=== PATIENT | male | born 1960 | race Caucasian/White ===

== ENCOUNTER 2016-08-15 22:57 | Emergency (ER) | payer MEDICAID, OTHER ==
[~2016-08-15] VITALS: Ht 177.8 cm; Wt 81.6 kg
[~2016-08-15 22:57] MED LIST: AMOX-842 PO; HYDR-4446 PO; METO-460 PO
[2016-08-15 23:09] VITALS: BP 138/89
--- NOTE | 2016-08-16 00:59 | NUR ---
PT TAKEN TO BED 3
--- NOTE | 2016-08-16 01:03 | NUR ---
56 Y/O M BIBA C/P ETOH AND ANXIETY, HE DRINK VODKA ALL DAY AND ANXIOUS. PT ALERT AND ORIENTED X 4, NO S/S OF DISTRESS ER MADE AWARE.
--- NOTE | 2016-08-16 01:07 | NUR ---
Dr. Guadarrama evaluating patient at bedside.
[2016-08-16 01:40] VITALS: BP 133/82
== END 2016-08-16 00:59 | disposition home or self-care (01) ==
LOC: MED 22:57
DX: F10.20 Alcohol dependence, uncomplicated (principal); I10 Essential (primary) hypertension; Z88.5 Allergy status to narcotic agent
CPT/HCPCS: 99283

== ENCOUNTER 2016-08-30 17:17 | Inpatient (IN) | payer OTHER ==
[~2016-08-30] VITALS: Ht 175.3 cm; Wt 81.6 kg
--- NOTE | 2016-08-30 17:17 | NUR ---
Patient was BIBA at this time.
--- NOTE | 2016-08-30 17:24 | NUR ---
Patient taken to bed 07 via gurney per EMS.
[2016-08-30 17:26] VITALS: BP 136/88
--- NOTE | 2016-08-30 17:42 | NUR ---
56/M josy from home for evaluation of ETOH intoxication. Pt states he called 911 from home and states "I want to quit drinking." Denies pain. Denies chest pain or SOB. Denies N/V/D. AOX4, slurred speech noted. VSS. Pt placed on cardiac technician, pulse oximetry, blood pressure monitoring. NSR. No distress noted. Pt is calm and cooperative at this time.
--- NOTE | 2016-08-30 17:44 | NUR ---
Patient being evaluated by physician at bedside.
[2016-08-30] MEDS ORDERED: NACL 0.9% 1,000 ML IV ONE ×2 (17:50→18:55)
--- NOTE | 2016-08-30 18:22 | NUR ---
URINAL PROVIDED AT BEDSIDE. SOCKS PROVIDED. LAB AT BEDSIDE FOR BLOOD DRAW.
--- NOTE | 2016-08-30 18:25 | NUR ---
LAB at bedside.
[2016-08-30 18:37] LABS: BASOPHILS # (AUTO) 0.4 K/uL (0.00-0.22); EOSINOPHILS # (AUTO) 0.2 K/uL (0-0.4); EOSINOPHILS % (AUTO) 1.7 % (0.0-4.0); HEMATOCRIT 38.2 % (36-52); HEMOGLOBIN 12.7 g/dL (12.0-18.0); LYMPHOCYTES # (AUTO) 1.9 K/uL (2.0-11.5); LYMPHOCYTES % (AUTO) 16.3 % (20.5-51.1); MEAN CORPUSCULAR HEMOGLOBIN 29 pg (27-31); MEAN CORPUSCULAR HGB CONC 33 g/dL (33-37); MEAN CORPUSCULAR VOLUME 89 fL (80-94); MONOCYTES # (AUTO) 0.2 K/uL (0.8-1.0); NEUTROPHILS # (AUTO) 9.2 K/uL (1.8-7.7); PLATELET COUNT (AUTO) 196 K/uL (140-450); RED BLOOD CELL COUNT(AUTO) 4.32 MIL/uL (4.20-6.10); RED CELL DISTRIBUTION WIDTH 14.4 % (11.6-13.7); WHITE BLOOD COUNT (AUTO) 11.9 K/uL (4.8-10.8)
--- NOTE | 2016-08-30 18:38 | NUR ---
Urinal provided. UA collected and sent to lab. Pt placed in position of comfort. Warm blanket provided. VSS.
[2016-08-30 18:47] LABS: ANION GAP 26.9 (8-16); CALCIUM 8.3 mg/dL (8.5-10.1); CARBON DIOXIDE 18.2 mmol/L (21-32); CHLORIDE 108 mmol/L (98-107); CREATININE 1.2 mg/dL (0.6-1.3); GFR ARICAN-AMERICAN 81 mL/min (>90); GFR NON ARICAN-AMERICAN 67 mL/min (>90); GLUCOSE 79 mg/dL (74-106); POTASSIUM 4.1 mmol/L (3.5-5.1); SODIUM SERUM 149 mmol/L (136-145); UREA NITROGEN, BLOOD 15 mg/dL (7-18)
[2016-08-30 18:55] LABS: ALANINE AMINOTRANSFERASE 38 U/L (12-78); ALBUMIN 3.8 g/dL (3.4-5.0); ALCOHOL, BLOOD 366 mg/dL (<3); ALKALINE PHOSPHATASE 78 U/L (46-116); ASPARTATE AMINOTRANSFERASE 48 U/L (15-37); MAGNESIUM 1.6 mg/dL (1.8-2.4); TOTAL BILIRUBIN 0.4 mg/dL (0.0-1.0); TOTAL PROTEIN, SERUM 8.4 g/dL (6.4-8.2)
[2016-08-30 18:58] LABS: ACETAMINOPHEN < 0.5 ug/ml (10-30); SALICYLATE < 2.8 mg/dL (2.8-20.0)
--- NOTE | 2016-08-30 19:04 | NUR ---
Pt assisted to sit at bedside.
[2016-08-30 19:06] LABS: APPEARANCE,URINE CLEAR (CLEAR); BILIRUBIN,URINE NEGATIVE (NEGATIVE); BLOOD, URINE 1+ (NEGATIVE); COLOR,URINE YELLOW (YELLOW); LEUKOCYTE ESTERASE ,URINE NEGATIVE (NEGATIVE); NITRITE, URINE NEGATIVE (NEGATIVE); PROTEIN,URINE 1+ (NEGATIVE); UGLUCOSE NEGATIVE (NEGATIVE); UROBILINOGEN,URINE 0.2 EU/dL (0.2 - 1)
[2016-08-30 19:09] LABS: BACTERIA,URINE None Seen /HPF (None Seen); RBC,URINE 0-3 /HPF (0-5); SQUAMOUS EPITHELIAL CELL,UR None Seen /LPF (0-3 (FEW)); WBC,URINE NONE SEEN /HPF (0-5)
--- NOTE | 2016-08-30 19:16 | NUR ---
Pt report given to Po JACOBSEN. Transfer of care at this time.
[2016-08-30 19:22] LABS: AMPHETAMINE, URINE NEG. ng/ml (NEG <=1000); BARBITURATE, URINE NEG. ng/ml (NEG <=200); BENZODIAZEPINE, URINE NEG. ng/mL (NEG <=200); CANNABINOID, URINE NEG. ng/mL (NEG <=50); COCAINE, URINE NEG. ng/mL (NEG <=300); OPIATE, URINE NEG. ng/mL (NEG <=2000); PHENCYCLIDINE SCREEN,URINE NEG. ng/mL (NEG <=25)
[2016-08-30] MEDS ORDERED: ONDANSETRON 4 MG/2 ML VIAL IVP PRN (19:40)
--- NOTE | 2016-08-30 20:04 | NUR ---
Patient will be admitted to care of DR ODEN. Admited to TELE 107A. Will go to room 107A. Belongings list completed. Report to JURGEN JACOBSEN.
[2016-08-30] MEDS ORDERED: LOSA100T1 PO (20:14)
[2016-08-30 20:30] VITALS: BP 137/71
--- NOTE | 2016-08-30 20:45 | NUR ---
RECEIVED PT FROM ER VIA JOHN PT ALCOHOLIC AAOX4 AMBULATES WITH PR MANAGER ON WEED INSPECT[address] ST , HL ON LEFT HAND PATENT PT IS ORIENTED TO THE FLOOR CALL LIGHT WITHIN REACH
[2016-08-30] MEDS: DEXT 5% /NACL 0.9% 1,000 ML IV SCH (20:55)
[2016-08-30] MEDS: LORazepam 1 MG TAB PO SCH (21:08)
--- NOTE | 2016-08-30 23:00 | NUR ---
PT COMPLAINTS FOR INSOMNIA, PT REPOSITIONED ON TELMETRY ST VOIDING WELL, DR ODEN WILL BE NOTIFY PT CONDITION.
[2016-08-31] VITALS: BP 130/83
[2016-08-31] MEDS ORDERED: LORazepam 2 MG/ML VIAL IM/IVP PRN (00:20)
[2016-08-31] MEDS: TEMAZEPAM 15 MG CAP PO SCH ×2 (00:39→21:11)
--- NOTE | 2016-08-31 01:35 | NUR ---
PT VOIDING WELL AWAKE IV ON LEFT HAND INFUSING WELL ON TELMETRY ST PT VERBALIZED INSOMNIA RESTORIL GIVEN
[2016-08-31 04:00] VITALS: BP 137/79
--- NOTE | 2016-08-31 05:00 | NUR ---
PT AGITATED, ANXIOUS WITH TREMORS MEDICATED WITH ATIVAN
[2016-08-31] MEDS: LORazepam 1 MG TAB PO SCH ×3 (05:58→21:10)
--- NOTE | 2016-08-31 06:01 | NUR ---
PT AWAKE ANXIOUS MEDIC GIVEN ORDER AROUND THE CLOCK,
[2016-08-31 06:17] LABS: BASOPHILS # (AUTO) 0.2 K/uL (0.00-0.22); BASOPHILS % (AUTO) 1.6 % (0.0-2.0); EOSINOPHILS # (AUTO) 0.1 K/uL (0-0.4); EOSINOPHILS % (AUTO) 0.9 % (0.0-4.0); HEMATOCRIT 32.1 % (36-52); HEMOGLOBIN 10.5 g/dL (12.0-18.0); LYMPHOCYTES # (AUTO) 2.5 K/uL (2.0-11.5); LYMPHOCYTES % (AUTO) 25.6 % (20.5-51.1); MEAN CORPUSCULAR HEMOGLOBIN 29 pg (27-31); MEAN CORPUSCULAR HGB CONC 33 g/dL (33-37); MEAN CORPUSCULAR VOLUME 88 fL (80-94); MONOCYTES # (AUTO) 1.1 K/uL (0.8-1.0); MONOCYTES % (AUTO) 11.8 % (1.7-9.3); NEUTROPHILS # (AUTO) 5.8 K/uL (1.8-7.7); NEUTROPHILS % (AUTO) 60.1 % (42.2-75.2); PLATELET COUNT (AUTO) 170 K/uL (140-450); RED BLOOD CELL COUNT(AUTO) 3.66 MIL/uL (4.20-6.10); RED CELL DISTRIBUTION WIDTH 13.9 % (11.6-13.7); WHITE BLOOD COUNT (AUTO) 9.7 K/uL (4.8-10.8)
[2016-08-31] MEDS: DEXT 5% /NACL 0.9% 1,000 ML IV SCH ×2 (06:34→15:40)
[2016-08-31 06:52] LABS: ANION GAP 20.2 (8-16); CARBON DIOXIDE 19.7 mmol/L (21-32)
[2016-08-31 07:26] LABS: POTASSIUM 2.9 mmol/L (3.5-5.1)
--- NOTE | 2016-08-31 07:30 | NUR ---
RECEIVED PT ON BED AAOX4. NO SOB NOTED. NO C/O PAIN AT THIS TIME. IV TO LT HAND PATENT AND INTACT. CHEST CLEAR. ABDOMEN SOFT, BOWEL SOUNDS PRESENT. NO EDEMA NOTED. INSTRUCTED PT TO CALL FOR ASSISTANCE, CALL LIGHT WITHIN REACH. PT VERBALIZED UNDERSTANDING.
--- NOTE | 2016-08-31 07:31 | NUR ---
PT ON SEIZURE PRECAUTIONS, SIDE RAILS PADED. SCD'S IN PLACE.
[2016-08-31 08:00] VITALS: BP 133/78
[2016-08-31] MEDS: THIAMINE 100 MG TAB PO SCH (08:43)
[2016-08-31] MEDS: FOLIC ACID 1 MG TAB PO SCH (08:43)
[2016-08-31] MEDS: MULTIVITAMIN 1 TAB PO SCH (08:44)
[2016-08-31] MEDS: ACETAMINOPHEN 325 MG TAB PO PRN ×3 (08:45→23:24)
--- NOTE | 2016-08-31 08:45 | NUR ---
PATIENT HAS BEEN SCREENED AND CATEGORIZED LOW NUTRITION RISK. PATIENT WILL BE SEEN WITHIN 7 DAYS OF ADMISSION. 09/06/[address]
[2016-08-31] MEDS ORDERED: POTASSIUM CHLORIDE 60 MEQ, LIDOCAINE 1% 25 MG in NACL 0.9% 250 ML IV SCH (09:00)
--- NOTE | 2016-08-31 10:36 | NUR ---
CM NOTE INITIAL REVIEW SENT TO [facility] FAX [phone] PH [phone] RYAN RODGERS EXT [phone]
[2016-08-31 12:00] VITALS: BP 114/87
--- NOTE | 2016-08-31 12:53 | NUR ---
CM NOTE RECEIVED CALL FROM ELLIOTT BLAIR WHO IS COVERING FOR MERCHANDISING REPRESENTATIVE CLARISSA AND SHE SAID SHE JUST UPDATED THE SYSTEM AND THAT PATIENT IS NOT [facility] DIRECT BUT HAS [facility]. PER ELLIOTT ABDI, REVIEWS SHOULD BE SENT TO [facility]. FAXED INITIAL REVIEW TO [facility] [phone] MACKENZIE DAWSON [phone]
[2016-08-31 16:00] VITALS: BP 140/76
--- NOTE | 2016-08-31 18:34 | NUR ---
PT SEEN BY DR. VILLAVICENCIO WITH NEW ORDERS.
--- NOTE | 2016-08-31 19:09 | NUR ---
PT RESTING. NO SOB NOTED. NO COMPLAINTS MADE AT TIME. WILL ENDORSE TO NEXT SHIFT NURSE FOR CONTINUE OF CARE.
--- NOTE | 2016-08-31 19:30 | NUR ---
RECEIVED REPORT FROM BENJY RN AT BEDSIDE. PT IS ALERT AWAKE ORIENTED X4. INITIAL ASSESSMENT DONE. NO S/S OF RESPIRATORY DISTRESS OR SOB NOTED. NO C/O PAIN OR ANY DISCOMFORT AT THIS TIME. PLAN OF CARE REVIEWED TO PT AND FAMILY AT BEDSIDE AND VERBALIZED UNDERSTANDING. CALL LIGHT WITHIN REACH. WILL CONTINUE TO MONITOR.
[2016-08-31 20:00] VITALS: BP 144/80
--- NOTE | 2016-08-31 20:30 | NUR ---
DR. IRVING CAME TO SEE PT AND NO NEW ORDERS WERE GIVEN. WILL CONTINUE TO MONITOR.
[2016-09-01] VITALS: BP 141/75
--- NOTE | 2016-09-01 01:00 | NUR ---
PT IS SLEEPING RIGHT NOW BUT EASILY AROUSABLE. NO S/S OF ANY DISCOMFORT AT THIS TIME. ALL NEEDS ARE ATTENDED. CALL LIGHT WITHIN REACH. WILL CONTINUE TO MONITOR.
[2016-09-01] MEDS: DEXT 5% /NACL 0.9% 1,000 ML IV SCH ×2 (02:43→11:40)
[2016-09-01 04:00] VITALS: BP 146/82
[2016-09-01] MEDS: LORazepam 1 MG TAB PO SCH ×2 (04:26→13:19)
--- NOTE | 2016-09-01 05:00 | NUR ---
AM CARE RENDERED. BED LINEN CHANGED. INSTRUCTED PT TO REPOSITION. KEPT CLEAN AND DRY. CALL LIGHT WITHIN REACH. WILL CONTINUE TO MONITOR.
[2016-09-01 06:07] LABS: BASOPHILS # (AUTO) 0.1 K/uL (0.00-0.22); BASOPHILS % (AUTO) 0.9 % (0.0-2.0); EOSINOPHILS # (AUTO) 0.1 K/uL (0-0.4); EOSINOPHILS % (AUTO) 2.3 % (0.0-4.0); HEMATOCRIT 35.4 % (36-52); HEMOGLOBIN 11.4 g/dL (12.0-18.0); LYMPHOCYTES # (AUTO) 1.1 K/uL (2.0-11.5); LYMPHOCYTES % (AUTO) 17.9 % (20.5-51.1); MEAN CORPUSCULAR HEMOGLOBIN 28 pg (27-31); MEAN CORPUSCULAR HGB CONC 32 g/dL (33-37); MEAN CORPUSCULAR VOLUME 88 fL (80-94); MONOCYTES # (AUTO) 0.7 K/uL (0.8-1.0); MONOCYTES % (AUTO) 11.3 % (1.7-9.3); NEUTROPHILS # (AUTO) 4.1 K/uL (1.8-7.7); NEUTROPHILS % (AUTO) 67.6 % (42.2-75.2); PLATELET COUNT (AUTO) 119 K/uL (140-450); RED BLOOD CELL COUNT(AUTO) 4.04 MIL/uL (4.20-6.10); RED CELL DISTRIBUTION WIDTH 14.1 % (11.6-13.7); WHITE BLOOD COUNT (AUTO) 6.1 K/uL (4.8-10.8)
[2016-09-01 06:20] LABS: ANION GAP 17.1 (8-16); CALCIUM 8.8 mg/dL (8.5-10.1); CARBON DIOXIDE 24.5 mmol/L (21-32); CREATININE 0.8 mg/dL (0.6-1.3)
[2016-09-01 06:30] LABS: POTASSIUM 2.6 mmol/L (3.5-5.1)
--- NOTE | 2016-09-01 07:15 | NUR ---
RECEIVED PATIENT REPORT AT BEDSIDE. PATIENT AWAKE, ALERT AND ORIENTED. NO S/S OF DISTRESS NOTED. NO C/O PAIN AT THIS TIME. PATIENT ON ROOM AIR. IV LINE NOTED TO THE LEFT HAND WITH IVF INFUSING WELL. PATIENT ON TELE MONITORING. BED LOWERED WITH CALL LIGHT WITHIN REACH. WILL CONTINUE TO MONITOR
--- NOTE | 2016-09-01 07:17 | NUR ---
PT HAS NO S/S OF ANY DISCOMFORT. PLAN OF CARE ENDORSED TO DOYLE JACOBSEN AT BEDSIDE FOR CONTINUITY OF CARE.
[2016-09-01] MEDS ORDERED: POTASSIUM CHLORIDE 60 MEQ, LIDOCAINE 1% 25 MG in NACL 0.9% 250 ML IV SCH (07:30)
[2016-09-01 08:00] VITALS: BP 149/85
[2016-09-01] MEDS ORDERED: POTASSIUM CHLORIDE 20% 40 MEQ/15 ML UDC PO SCH (09:00)
[2016-09-01] MEDS: FOLIC ACID 1 MG TAB PO SCH (09:01)
[2016-09-01] MEDS: MULTIVITAMIN 1 TAB PO SCH (09:01)
[2016-09-01] MEDS: THIAMINE 100 MG TAB PO SCH (09:01)
--- NOTE | 2016-09-01 10:39 | NUR ---
CONCURRENT REVIEW FAXED TO [facility] [phone] PHONE EUNICE [phone]
--- NOTE | 2016-09-01 11:18 | NUR ---
Social Service Note: I met with patient at bedside; I introduced myself and explained to patient my role as a medical staff manager. Per patient, he has been drinking alcohol heavily since the age of 20. He reported he did not seek help for alcohol abuse in the past. However, he stated his drinking has gotten out of control and has affected his life in various ways. I provided him community resources for alcohol/substance abuse treatment programs and counseling/mental health services. I encouraged him to review community resources with someone within his support system. He verbalized understanding and stated he was planning to review community resources with his significant other. He stated he follows up with his pcp every 4 months, reported his pcp has advised him to stop drinking alcohol. He reported he already spoke with attending physician regarding his plan of care and current medical status. He stated he does not have any questions or concerns at this time.
[2016-09-01 12:00] VITALS: BP 149/87
--- NOTE | 2016-09-01 13:27 | NUR ---
PATIENT C/O OF DIARRHEA. PAGED DR Lionel ODEN
[2016-09-01] MEDS ORDERED: LOPERAMIDE 2 MG CAP PO PRN (13:40)
--- NOTE | 2016-09-01 14:02 | NUR ---
CONCURRENT REVIEW FAXED TO [facility] [phone] PHONE [phone]
[2016-09-01 16:00] VITALS: BP 155/97
--- NOTE | 2016-09-01 17:11 | NUR ---
PATIENT SEEN BY DR Lionel ODEN
[2016-09-01] MEDS ORDERED: THIA-8 PO (17:20)
[2016-09-01] MEDS ORDERED: LORA-476 PO (17:20)
[2016-09-01] MEDS ORDERED: FOLI1TAB90 PO (17:20)
[2016-09-01] MEDS ORDERED: MULT-405 PO (17:20)
[2016-09-01] MEDS ORDERED: POTA10TA10 PO (17:20)
[2016-09-01] MEDS ORDERED: IMO2 PO (17:20)
[2016-09-01] MEDS ORDERED: TEMA15CA24 PO (17:20)
--- NOTE | 2016-09-01 18:55 | NUR ---
DISCHARGE INSTRUCTIONS AND DISCHARGE PRESCRIPTIONS GIVEN. PATIENT VERBALIZED UNDERSTANDING. IV LINE DISCONTINUED. TELE LEADS TAKEN OFF. PATIENT SIGNED ALL OF HIS DISCHARGE PAPERS. PATIENT WAITING FOR HIS RIDE HOME. PATIENT IN STABLE CONDITION
--- NOTE | 2016-09-01 19:16 | NUR ---
PATIENT PICKED UP BY HIS GF. PATIENT LEFT IN STABLE CONDITION
== END 2016-09-01 19:16 | disposition home or self-care (01) | DRG 775 ==
LOC: MED 17:17 → MTU 19:49
PROVIDERS: ADMIT Preventive Medicine Preventive Medicine/Occupational Environmental Medicine; ATTEND Preventive Medicine Preventive Medicine/Occupational Environmental Medicine
DX: F10.120 Alcohol abuse with intoxication, uncomplicated (principal); E87.0 Hyperosmolality and hypernatremia; R45.851 Suicidal ideations; F33.1 Major depressive disorder, recurrent, moderate; E83.41 Hypermagnesemia; Y90.8 Blood alcohol level of 240 mg/100 ml or more; N18.9 Chronic kidney disease, unspecified; G40.909 Epilepsy, unspecified, not intractable, without status epilepticus; E87.6 Hypokalemia; D64.9 Anemia, unspecified; D72.829 Elevated white blood cell count, unspecified; E83.52 Hypercalcemia; R74.0 Nonspecific elevation of levels of transaminase and lactic acid dehydrogenase [LDH]; G89.29 Other chronic pain; I12.9 Hypertensive chronic kidney disease with stage 1 through stage 4 chronic kidney disease, or unspecified chronic kidney disease; Z88.0 Allergy status to penicillin; Z88.5 Allergy status to narcotic agent; Z79.899 Other long term (current) drug therapy; Z91.5 Personal history of self-harm
CPT/HCPCS: 36415; 80048; 80053; 80305; 81001; 83735; 85025; 85651; 86140; 87040; 87081; 87086; 93005; 96361; 96374; 99285; G0480; G0482; J2001; J2060; J2405; J3480; J7030; J7042

== ENCOUNTER 2016-09-06 12:49 | Emergency (ER) | payer OTHER ==
[~2016-09-06] VITALS: Ht 175.3 cm; Wt 90.7 kg
[~2016-09-06 12:49] MED LIST changes: -AMOX-842 PO; +FOLI1TAB90 PO; -HYDR-4446 PO; +IMO2 PO; +LORA-476 PO; +LOSA100T1 PO; -METO-460 PO; +MULT-405 PO; +POTA10TA10 PO; +TEMA15CA24 PO; +THIA-8 PO
--- NOTE | 2016-09-06 12:49 | NUR ---
Patient was BIBA at this time.
[2016-09-06 12:59] VITALS: BP 135/90
--- NOTE | 2016-09-06 13:18 | NUR ---
Patient taken to lobby from [facility] via wheelchair per tech.
--- NOTE | 2016-09-06 21:12 | NUR ---
TO BAMBI COVINGTON FROM BAMBI PRAJAPATI
[2016-09-06 21:45] VITALS: BP 163/96
--- NOTE | 2016-09-06 21:45 | NUR ---
56Y M PRESENT TO ER C/O OF GENERALIZED PAIN. PT STATES HE DRINKS ALCOHOL EVERYDAY AND THIS MORNING HE GETS VERY DIZZY AND FELL, HIT HIS HEAD. NO INJURY NOTED. NO DISTRESS NOTED.
--- NOTE | 2016-09-06 22:00 | NUR ---
PATIENT ELOPED FROM FACILITY. DISCHARGE INSTRUCTIONS NOT GIVEN TO PATIENT. DR. White NOTIFIED.
--- NOTE | 2016-09-06 22:00 | NUR ---
James medeiros in ED - 09/06/16 at 2321 by JULIA PATIENT LEFT WITHOUT BEING SEEN BY DR. JIMENEZ. NO FURTHER CARE PROVIDED FOR PATIENT.
== END 2016-09-06 22:00 | disposition left against medical advice (07) ==
LOC: MED 12:49
DX: F10.129 Alcohol abuse with intoxication, unspecified (principal); Z88.0 Allergy status to penicillin; Z88.5 Allergy status to narcotic agent; I10 Essential (primary) hypertension
CPT/HCPCS: 99283

== ENCOUNTER 2017-03-17 01:09 | Emergency (ER) | payer OTHER ==
[~2017-03-17] VITALS: Ht 175.3 cm; Wt 99.8 kg
[~2017-03-17 01:09] MED LIST changes: +ATI.5 PO; +ATOR20TA40 PO; -IMO2 PO; -LORA-476 PO; -POTA10TA10 PO; -TEMA15CA24 PO
--- NOTE | 2017-03-17 01:15 | NUR ---
PT PLACED IN BED 12 BY EMS.
[2017-03-17 01:20] VITALS: BP 124/78
--- NOTE | 2017-03-17 01:20 | NUR ---
56/M josy from home for evaluation of ETOH intoxication. Pt states he wants to go to a rehab facility to detox. AOX4, ambulatory with steady gait. VSS. No distress noted.
[2017-03-17] MEDS: NACL 0.9% 1,000 ML IV ONE (02:02)
--- NOTE | 2017-03-17 04:30 | NUR ---
PT IS ABLE TO WALK AROUND, NO S/S OF DISTREDSS, VSS, PT CALLED HIS GF TO PICK HIM UP.
[2017-03-17 04:57] VITALS: BP 118/77
--- NOTE | 2017-03-17 04:57 | NUR ---
Patient discharged with v/s stable. Written and verbal after care instructions given and explained. Patient alert, oriented and verbalized understanding of instructions. Ambulatory with steady gait. All questions addressed prior to discharge. ID band removed. IV SITE TO RIGHT ARM REMOVED. Patient advised to follow up with PMD. Rx of ZOFRAN AND LIBRIUM given. Patient educated on indication of medication including possible reaction and side effects. Opportunity to ask questions provided and answered.
== END 2017-03-17 04:57 | disposition home or self-care (01) ==
LOC: MED 01:09
DX: F10.229 Alcohol dependence with intoxication, unspecified (principal); I10 Essential (primary) hypertension; Z88.0 Allergy status to penicillin; Z88.5 Allergy status to narcotic agent; Z79.899 Other long term (current) drug therapy
CPT/HCPCS: 96360; 99284; J7030

== ENCOUNTER 2017-03-19 04:30 | Inpatient (IN) | payer OTHER ==
[~2017-03-19] VITALS: Ht 175.3 cm; Wt 95.3 kg
[2017-03-19 04:30] VITALS: BP 135/93
--- NOTE | 2017-03-19 04:30 | NUR ---
PATIENT BIB BLS TO ER BED 12.
[2017-03-19] MEDS ORDERED: MULTIVITAMIN-12 10 ML, THIAMINE 100 MG, MAGNESIUM SULFATE 50% 2,000 MG, FOLIC ACID 5 MG... IV ONE ×5 (04:40)
[2017-03-19 04:53] LABS: BASOPHILS # (AUTO) 0.1 K/uL (0.00-0.22); BASOPHILS % (AUTO) 2.5 % (0.0-2.0); EOSINOPHILS # (AUTO) 0.1 K/uL (0-0.4); EOSINOPHILS % (AUTO) 1.7 % (0.0-4.0); HEMATOCRIT 33.5 % (36-52); HEMOGLOBIN 10.5 g/dL (12.0-18.0); LYMPHOCYTES # (AUTO) 2.2 K/uL (2.0-11.5); LYMPHOCYTES % (AUTO) 38.6 % (20.5-51.1); MEAN CORPUSCULAR HEMOGLOBIN 25 pg (27-31); MEAN CORPUSCULAR HGB CONC 31 g/dL (33-37); MEAN CORPUSCULAR VOLUME 78 fL (80-94); NEUTROPHILS # (AUTO) 2.2 K/uL (1.8-7.7); NEUTROPHILS % (AUTO) 39.7 % (42.2-75.2); PLATELET COUNT (AUTO) 280 K/uL (140-450); RED BLOOD CELL COUNT(AUTO) 4.29 MIL/uL (4.20-6.10); WHITE BLOOD COUNT (AUTO) 5.6 K/uL (4.8-10.8)
[2017-03-19 05:02] LABS: ANION GAP 16.8 (8-16); CARBON DIOXIDE 26.7 mmol/L (21-32); CHLORIDE 105 mmol/L (98-107); CREATININE 1.1 mg/dL (0.7-1.3); GFR ARICAN-AMERICAN 89 mL/min (>90); GLUCOSE 97 mg/dL (74-106); POTASSIUM 3.5 mmol/L (3.5-5.1); SODIUM SERUM 145 mmol/L (136-145); UREA NITROGEN, BLOOD 12 mg/dL (7-18)
[2017-03-19 05:04] LABS: RED CELL DISTRIBUTION WIDTH 21.1 % (11.6-13.7)
[2017-03-19 05:05] LABS: MONOCYTES % (AUTO) 17.5 % (1.7-9.3)
--- NOTE | 2017-03-19 05:10 | NUR ---
56Y/M PRESENTS TO ER WANTING HELP FOR ETOH DETOX. PMH HTN, ALLERGY TO CODEINE. PT BIBA SEEKING HELP TO DETOX FROM ALCOHOL. PT STATES HE HAS PAIN OVER HIS WHOLE BODY 10/02, PT DENIES TRAUMA, N/V/D, PT AA&OX4. PT IN BED SIDE RAILS UP X2, ER AWARE OF PT STATUS.
[2017-03-19 05:11] LABS: ACETAMINOPHEN < 0.5 ug/ml (10-30); ALBUMIN 3.7 g/dL (3.4-5.0); ASPARTATE AMINOTRANSFERASE 39 U/L (15-37); SALICYLATE < 2.8 mg/dL (2.8-20.0); TOTAL BILIRUBIN 0.2 mg/dL (0.0-1.0)
[2017-03-19] MEDS ORDERED: THIAMINE 200 MG/2 ML VIAL ONE (05:20)
[2017-03-19] MEDS ORDERED: FOLIC ACID 5 MG/ML SYR ONE (05:20)
[2017-03-19] MEDS ORDERED: MAGNESIUM SULFATE 50% 1000 MG/2 ML VIAL IV ONE (05:20)
[2017-03-19] MEDS ORDERED: MULTIVITAMIN-12 10 ML VIAL IV ONE (05:20)
[2017-03-19 05:36] LABS: BARBITURATE, URINE NEG. ng/ml (NEG <=200); BENZODIAZEPINE, URINE NEG. ng/mL (NEG <=200); CANNABINOID, URINE NEG. ng/mL (NEG <=50); COCAINE, URINE NEG. ng/mL (NEG <=300); OPIATE, URINE NEG. ng/mL (NEG <=2000); PHENCYCLIDINE SCREEN,URINE NEG. ng/mL (NEG <=25)
--- NOTE | 2017-03-19 06:00 | NUR ---
PT LAYING IN BED, COOPERATIVE, TALKING TO STAFF, AA&OX4, WILL CONTINUE TO MONITOR.
[2017-03-19] MEDS ORDERED: ONDANSETRON 4 MG/2 ML VIAL IVP PRN (06:10)
[2017-03-19] MEDS ORDERED: ACETAMINOPHEN 325 MG TAB PO PRN (06:10)
[2017-03-19] MEDS ORDERED: AMLO5TAB PO (06:34)
[2017-03-19] MEDS ORDERED: LORazepam 0.5 MG TAB PO PRN ×2 (06:35→09:07)
[2017-03-19] MEDS ORDERED: PARO-42 PO (06:35)
--- NOTE | 2017-03-19 06:40 | NUR ---
PT ARRIVED AT UNIT VIA GURNEY, RECEIVED REPORT FROM ER NURSE CHANA RN, PT STABLE NO DISTRESS NOTED
[2017-03-19 06:46] LABS: PROTHROMBIN TIME 10.5 secs (10.8-13.4)
[2017-03-19 06:49] LABS: CHOL/HDL RATIO 3.2 (1-4.5); FREE T4 (FREE THYROXINE) 0.66 ng/dL (0.76-1.46); MAGNESIUM 1.7 mg/dL (1.8-2.4); PHOSPHORUS 3.2 mg/dL (2.5-4.9); THYROID STIMULATING HORMONE 0.56 uIU/mL (0.34-3.74)
--- NOTE | 2017-03-19 06:50 | NUR ---
Patient will be admitted to care of DR MÁRQUEZ. Admited to TELE. Will go to room 120-B. Belongings list completed. Report to ROCHELLE.
[2017-03-19] MEDS ORDERED: LORazepam 1 MG TAB PO SCH (07:00)
--- NOTE | 2017-03-19 07:19 | NUR ---
GAVE BEDSIDE REPORT TO DAY SHIFT NURSE BRENDEN JACOBSEN, PT STABLE, NO DISTRESS NOTED, CALL LIGHT WITHIN REACH.
--- NOTE | 2017-03-19 07:20 | NUR ---
RECEIVED REPORT FROM THE PYTHON DEVELOPER NURSE AT BEDSIDE FOR CONTINUITY OF CARE. PT IS A NEW ADMISSION, ARRIVED ON THE FLOOR AT 0645. PT IS AWAKE AND ORIENTED. INTRODUCED MYSELF AND UPDATED THE BOARD. PT IS PLEASANT, ANSWERING ALL QUESTIONS APPROPRIATELY. PT IS AWARE HE IS HERE FOR ALCOHOL INTOXICATION AND WOULD LIKE TO HAVE A FRESH START, GET IN A PROGRAM. PT NEEDS ASSISTANCE WITH AMBULATION. ENCOURAGED PT TO USE THE URINAL AT BEDSIDE FOR FALL PRECAUTION. SKIN IS INTACT. NOTED THE LLE, BRUISE FOR PRIOR FALL. PT HAS AN IV ON R HAND 20G, BANANA BAG INFUSING AT 250ML/HR. NOTED THE NEW ORDER FOR NS AT 50ML. WILL GET SEIZURE PADS AND YELLOW GOWN, RED ALLERGY BAND. MRSA SCREENING WAS DONE PRIOR. V/S WITHIN NORMAL RANGE. NO SIGNS OF DISTRESS OR DISCOMFORT. WILL CONTINUE TO MONITOR PT.
[2017-03-19 08:00] VITALS: BP 135/79
[2017-03-19 08:03] LABS: APPEARANCE,URINE CLEAR (CLEAR); BILIRUBIN,URINE NEGATIVE (NEGATIVE); BLOOD, URINE NEGATIVE (NEGATIVE); COLOR,URINE YELLOW (YELLOW); LEUKOCYTE ESTERASE ,URINE NEGATIVE (NEGATIVE); NITRITE, URINE NEGATIVE (NEGATIVE); UGLUCOSE NEGATIVE (NEGATIVE)
--- NOTE | 2017-03-19 08:29 | NUR ---
REQUESTED A 2ND TRAY. PT IS VERY HUNGRY. REQUESTED FNS TO BRING UP ANOTHER.
[2017-03-19] MEDS ORDERED: MULTIVITAMIN 1 TAB PO SCH (09:00)
--- NOTE | 2017-03-19 09:26 | NUR ---
PATIENT IS A NEW ADMIT WITH INSUFFICIENT DATA IN CHART TO ACCURATELY SCREEN (NO VENKAT SCORE, NO NURSING I/A, NO GI DATA...). PATIENT IS CATEGORIZED NUTRITION SCREEN DUE IN 2 DAYS OF ADMIT DATE. 03/21/17 GERA GARCIA MBA, RD
[2017-03-19] MEDS: DOCUSATE SODIUM 100 MG GELCAP PO SCH ×2 (09:40→21:00)
[2017-03-19] MEDS: ATORVASTATIN 20 MG TAB PO SCH (09:40)
[2017-03-19] MEDS: NACL 0.9% 1,000 ML IV SCH ×2 (09:40→16:52)
[2017-03-19] MEDS: FOLIC ACID 1 MG TAB PO SCH (09:41)
[2017-03-19] MEDS: PANTOPRAZOLE 40 MG INJ VIAL IVP SCH (09:41)
[2017-03-19] MEDS: amLODIPine 5 MG TAB PO SCH (09:41)
[2017-03-19] MEDS: THIAMINE 100 MG TAB PO SCH (09:41)
[2017-03-19] MEDS: PARoxetine 20 MG TAB PO SCH (09:41)
[2017-03-19] MEDS: MULTIVITAMIN 1 TAB PO SCH (09:41)
--- NOTE | 2017-03-19 10:03 | NUR ---
ADMINISTERED MORNING MEDS. PT TOLERATED WELL. IV GOT PULLED OUT. STARTED A NEW IV, R HAND 22G NS AT 50ML. CHANGED SHEETS, EMPTIED URINAL 275ML YELLOW, CLEAR. PT WILL BE GOING TO SLEEP. DR SERNA WAS HERE TO ROUND. ASSESSED PT. WILL CONTINUE TO MONITOR PT.
--- NOTE | 2017-03-19 10:28 | NUR ---
RADIOLOGY HERE TO TAKE PT TO CT.
[2017-03-19 12:00] VITALS: BP 155/89
[2017-03-19] MEDS ORDERED: LACTULOSE 20 GM/30 ML UDC PO SCH ×3 (12:00→21:00)
[2017-03-19] MEDS: LORazepam 1 MG TAB PO SCH ×3 (12:47→20:21)
--- NOTE | 2017-03-19 12:47 | NUR ---
PT SOUND ASLEEP. HAD ATIVAN 3 HOURS AGO. HELD THE LACTULOSE AND ATIVAN.
--- NOTE | 2017-03-19 14:30 | NUR ---
PT AWAKE NOW. REQUESTED THE ATIVAN THAT HE MISSED AT 1300. ADMINISTERED. PT TOLERATED WELL. STILL REFUSED THE LACTULOSE. WILL CONTINUE TO MONITOR PT.
[2017-03-19 16:00] VITALS: BP 140/79
--- NOTE | 2017-03-19 16:58 | NUR ---
PT WAS NAUSEATED AND VOMITED FROM COUGHING. ADMINISTERED ZOFRAN. PT TOLERATED WELL. PT IS CLEAN AND RESTING COMFORTABLY.
--- NOTE | 2017-03-19 19:29 | NUR ---
ENDORSED PT TO THE ENERGY TECHNICIAN NURSE AT BEDSIDE FOR CONTINUITY OF CARE. PT IN STABLE CONDITION.
--- NOTE | 2017-03-19 19:30 | NUR ---
RECEIVED REPORT FROM DAY SHIFT NURSE. PT LYING COMFORTABLY IN BED. NO C/O PAIN OR DISCOMFORT. IV TO RIGHT HAND #22G WITH NS AT 120 ML/HR, INFUSING WELL. DISCUSSED PLAN OF CARE, PT VERBALIZED UNDERSTANDING. FALL AND SEIZURE PRECAUTION IN PLACE. CALL LIGHT WITHIN REACH. WILL CONTINUE TO MONITOR.
[2017-03-19 20:00] VITALS: BP 142/87
--- NOTE | 2017-03-19 20:33 | NUR ---
PT REFUSED DOCUSATE SODIUM AND LACTULOSE. DR. HILL MADE AWARE.
--- NOTE | 2017-03-19 23:00 | NUR ---
PT C/O HEADACHE. PAIN MEDS GIVEN ORDERED. MILD HAND TREMORS NOTED. ALL NEEDS MET AT THIS TIME. CALL LIGHT WITHIN REACH.
[2017-03-20] VITALS: BP 139/80
[2017-03-20] MEDS: NACL 0.9% 1,000 ML IV SCH ×2 (01:56→10:16)
--- NOTE | 2017-03-20 01:56 | NUR ---
PT SLEEPING BUT WAKES EASILY. NO S/S OF PAIN OR DISCOMFORT NOTED. CALL LIGHT WITHIN REACH.
[2017-03-20 04:00] VITALS: BP 138/78
[2017-03-20] MEDS: LORazepam 1 MG TAB PO SCH ×2 (04:35→13:29)
--- NOTE | 2017-03-20 05:00 | NUR ---
ATIVAN GIVEN. NO C/O PAIN OR DISCOMFORT. FALL AND SEIZURE PRECAUTION IN PLACE. CALL LIGHT WITHIN REACH.
[2017-03-20 06:33] LABS: HEMATOCRIT 32.8 % (36-52); HEMOGLOBIN 10.7 g/dL (12.0-18.0); MEAN CORPUSCULAR HEMOGLOBIN 25 pg (27-31); MEAN CORPUSCULAR HGB CONC 33 g/dL (33-37); MEAN CORPUSCULAR VOLUME 77 fL (80-94); PLATELET COUNT (AUTO) 190 K/uL (140-450); RED BLOOD CELL COUNT(AUTO) 4.26 MIL/uL (4.20-6.10); RED CELL DISTRIBUTION WIDTH 21.3 % (11.6-13.7); WHITE BLOOD COUNT (AUTO) 5.9 K/uL (4.8-10.8)
[2017-03-20 06:39] LABS: ANION GAP 12.9 (8-16); CARBON DIOXIDE 29.8 mmol/L (21-32); CREATININE 0.8 mg/dL (0.7-1.3)
[2017-03-20 06:43] LABS: MAGNESIUM 1.3 mg/dL (1.8-2.4)
--- NOTE | 2017-03-20 07:05 | NUR ---
ENDORSED PT TO DAY SHIFT NURSE. PT IN STABLE CONDITION.
--- NOTE | 2017-03-20 07:06 | NUR ---
RECEIVED REPORT FROM JAVA APPLICATION ENGINEER NURSE. PATIENT LYING IN BED SLEEPING, AROUSABLE BY VOICE. NO DISTRESS NOTED. DENIES ANY PAIN AT THIS TIME. PATIENT ABLE TO AMBULATE TO BATHROOM AND BACK WITH STEADY GAIT. AAOX4, CALM, COOPERATIVE, SKIN COLOR APPROPRIATE TO ETHNICITY, WARM TO TOUCH. SKIN IS INTACT. LUNGS CTA ON ALL LOBES. ABDOMEN SOFT, NON-DISTENDED. NO PERIPHERAL EDEMA NOTED. IV SITE IS INTACT, PATENT, AND INFUSING PER ORDERS. REVIEWED PLAN OF CARE WITH PATIENT. PATIENT VERBALIZED UNDERSTANDING. SAFETY MEASURES IN PLACE, CALL LIGHT WITHIN REACH. WILL CONTINUE TO MONITOR.
[2017-03-20 07:59] LABS: POTASSIUM 2.7 mmol/L (3.5-5.1)
[2017-03-20 08:00] VITALS: BP 149/90
[2017-03-20] MEDS ORDERED: MAG SULF 2000 MG/WATER PREMIX 100 ML IV SCH (08:00)
[2017-03-20 08:15] LABS: LYMPHOCYTES % (MANUAL) 22 % (20-46); MONOCYTES % (MANUAL) 18 % (5-12)
[2017-03-20] MEDS ORDERED: POTASSIUM CHLORIDE 40 MEQ, LIDOCAINE 1% 25 MG in NACL 0.9% 250 ML IV SCH (09:30)
--- NOTE | 2017-03-20 10:30 | NUR ---
Timber Trimmer met with patient to discuss and assess for possible needs of resources to services before discharge. Patient was cooperative and bright on affect reported feeling better and ready to go home to be with significant other. Patient also acknowledge needing professional help, support, and assistance with following up with appointments, transportation, substance abuse treatment programs and possibly individual therapy (all resources provided by social workers). Patient stated that he has made some arrangements already with significant other Reyna Bazan and she will be assisting patient more at home and with transportation when needed. Patient stated been able to make own appointments with health provider and agreed to attend and follow up with his health care. Stated also that he will follow up and complete referrals process with Substance abuse Programs in particular [facility] due to having different levels of treatment care in his area of [place]. Timber Trimmer asked and assess patient for S/I. Patient denied any thoughts of hurting self, stated feeling better about life and wanting to get better with health with out depending on Alcohol use. Patient follow up by saying that he is willing to seek for therapy and will be contacting therapist to make appointments in the future. Patient stated not having any more questions or concerns at the time and thank social worker psychiatric for providing resources.
[2017-03-20] MEDS: DOCUSATE SODIUM 100 MG GELCAP PO SCH (10:38)
[2017-03-20] MEDS: FOLIC ACID 1 MG TAB PO SCH (10:38)
[2017-03-20] MEDS: THIAMINE 100 MG TAB PO SCH (10:39)
[2017-03-20] MEDS: PARoxetine 20 MG TAB PO SCH (10:39)
[2017-03-20] MEDS: MULTIVITAMIN 1 TAB PO SCH (10:39)
[2017-03-20] MEDS: amLODIPine 5 MG TAB PO SCH (10:39)
[2017-03-20] MEDS: ATORVASTATIN 20 MG TAB PO SCH (10:40)
[2017-03-20] MEDS: PANTOPRAZOLE 40 MG INJ VIAL IVP SCH (10:40)
--- NOTE | 2017-03-20 10:47 | NUR ---
FAXED INITIAL REVIEW TO [facility] [phone] CALLED [facility] AND SPOKE WITH SANG, [phone]. SHE SAID THAT THIS PATIENT WAS HER PATIENT.
[2017-03-20 12:00] VITALS: BP 135/92
--- NOTE | 2017-03-20 13:30 | NUR ---
PATIENT LYING IN BED COMFORTABLY. NO DISTRESS NOTED. DENIES ANY PAIN. POTASSIUM CONTINUES TO RUN VIA IVPB. OTHER SCHEDULED MEDICATIONS DUE GIVEN. SAFETY MEASURES IN PLACE, CALL LIGHT WITHIN REACH. WILL CONTINUE TO MONITOR.
[2017-03-20] MEDS ORDERED: ONDA8ODT2 PO (14:37)
--- NOTE | 2017-03-20 14:57 | NUR ---
PATIENT LYING IN BED SLEEPING, AROUSABLE BY VOICE. NO DISTRESS NOTED. DENIES ANY PAIN. MAGNESIUM IV STILL INFUSING. SAFETY MEASURES IN PLACE, CALL LIGHT WITHIN REACH. WILL CONTINUE TO MONITOR.
[2017-03-20 16:00] VITALS: BP 130/88
[2017-03-20 16:51] LABS: ANION GAP 14.8 (8-16); CARBON DIOXIDE 28.1 mmol/L (21-32); CREATININE 0.9 mg/dL (0.7-1.3)
[2017-03-20 16:52] LABS: POTASSIUM 2.9 mmol/L (3.5-5.1)
[2017-03-20] MEDS ORDERED: POTASSIUM CHLORIDE 20% 40 MEQ/15 ML UDC PO SCH (17:15)
[2017-03-20] MEDS ORDERED: MAGNESIUM OXIDE 400 MG TAB PO SCH (17:30)
--- NOTE | 2017-03-20 17:30 | NUR ---
PATIENT LYING IN BED WATCHING TV. NO DISTRESS NOTED. DENIES ANY PAIN. CONDITION UNCHANGED. SCHEDULED MEDICATIONS DUE GIVEN. PATIENT TO BE DISCHARGED HOME LATER TODAY. PATIENT MADE AWARE. SAFETY MEASURES IN PLACE, CALL LIGHT WITHIN REACH. WILL CONTINUE TO MONITOR.
--- NOTE | 2017-03-20 18:15 | NUR ---
DISCHARGE INSTRUCTIONS/EDUCATION GIVEN TO PATIENT IN PREFERRED LANGUAGE OF AMERICAN, FOLLOW-UP VISITS, NEW/CHANGED MEDICATION REGIMEN AND DISEASE PROCESS OF ALCOHOL INTOXICATION. ANSWERED ALL OF PATIENT'S QUESTIONS. PATIENT VERBALIZED COMPLETE UNDERSTANDING. IV SITE REMOVED WITH MINIMAL BLOOD AND LUMEN COMPLETELY INTACT. ID BANDS REMOVED. ALL BELONGINGS WITH PATIENT IN A BAG. AWAITING FOR PATIENT'S FRIEND TO COME PICK HIM UP VIA PRIVATE VEHICLE. WILL CONTINUE TO MONITOR.
--- NOTE | 2017-03-20 19:00 | NUR ---
PATIENT'S FRIEND ARRIVED ON UNIT TO TAKE PATIENT HOME. PATIENT WHEELED DOWN TO LOBBY USING WHEELCHAIR PER PATIENT REQUEST. PATIENT ABLE TO AMBULATE FROM WHEELCHAIR TO CAR. PATIENT DISCHARGED HOME AT THIS TIME VIA PRIVATE VEHICLE IN STABLE CONDITION.
== END 2017-03-20 19:00 | disposition home or self-care (01) | DRG 775 ==
LOC: MED 04:30 → MTU 06:08
PROVIDERS: ADMIT Family Medicine Sports Medicine; ATTEND Family Medicine Sports Medicine
DX: F10.129 Alcohol abuse with intoxication, unspecified (principal); G92 Toxic encephalopathy; E83.42 Hypomagnesemia; I10 Essential (primary) hypertension; D50.9 Iron deficiency anemia, unspecified; E11.9 Type 2 diabetes mellitus without complications; J98.11 Atelectasis; E78.5 Hyperlipidemia, unspecified; E02 Subclinical iodine-deficiency hypothyroidism; F32.9 Major depressive disorder, single episode, unspecified; E87.6 Hypokalemia; Z88.6 Allergy status to analgesic agent; Z88.0 Allergy status to penicillin; Y90.8 Blood alcohol level of 240 mg/100 ml or more
CPT/HCPCS: 36415; 70450; 71010; 80048; 80053; 80305; 81003; 82140; 82150; 83036; 83690; 83735; 83880; 84100; 84439; 84443; 84484; 85025; 85610; 85730; 87081; 87086; 96365; 99285; A9153; C9113; G0480; G0482; J2001; J2405; J3411; J3475; J3480; J3490; J7030; Q0092

== ENCOUNTER 2017-05-31 16:57 | Inpatient (IN) | payer OTHER ==
[~2017-05-31] VITALS: Ht 175.3 cm; Wt 79.4 kg
[~2017-05-31 16:57] MED LIST changes: +AMLO5TAB PO; +ONDA8ODT2 PO; +PARO-42 PO
[2017-05-31 17:03] VITALS: BP 140/74
--- NOTE | 2017-05-31 17:09 | NUR ---
PT BIBA TO BED 11
--- NOTE | 2017-05-31 17:10 | NUR ---
56/M BIBA FROM HOME FOR ALCOHOL INTOXICATION AND LEFT THIGH PAIN S/P FALL X2 WEEKS AGO.HX HTN. DENIES N/V/D; SKIN IS PINK/WARM/DRY; AAOX4. LUNGS CLEAR BL; PATIENT STATES PAIN OF 8/10 AT THIS TIME. PATIENT POSITIONED FOR COMFORT; HOB ELEVATED; BEDRAILS UP X2; BED DOWN. ER MD MADE AWARE OF PT STATUS.
[2017-05-31] MEDS ORDERED: NACL 0.9% 1,000 ML IV ONE (17:45)
[2017-05-31 18:41] LABS: BASOPHILS % (AUTO) 1.5 % (0.0-2.0); EOSINOPHILS # (AUTO) 0.1 K/uL (0-0.4); EOSINOPHILS % (AUTO) 1.6 % (0.0-4.0); HEMATOCRIT 28.5 % (36-52); LYMPHOCYTES % (AUTO) 35.5 % (20.5-51.1); MEAN CORPUSCULAR HEMOGLOBIN 24 pg (27-31); MEAN CORPUSCULAR HGB CONC 32 g/dL (33-37); MEAN CORPUSCULAR VOLUME 74 fL (80-94); MONOCYTES % (AUTO) 8.5 % (1.7-9.3); NEUTROPHILS % (AUTO) 52.9 % (42.2-75.2); PLATELET COUNT (AUTO) 184 K/uL (140-450); RED BLOOD CELL COUNT(AUTO) 3.83 MIL/uL (4.20-6.10); RED CELL DISTRIBUTION WIDTH 20.3 % (11.6-13.7); WHITE BLOOD COUNT (AUTO) 5.2 K/uL (4.8-10.8)
[2017-05-31 18:42] LABS: ANION GAP 20.9 (8-16); BASOPHILS # (AUTO) 0.1 K/uL (0.00-0.22); CARBON DIOXIDE 22.5 mmol/L (21-32); CREATININE 1.2 mg/dL (0.7-1.3); LYMPHOCYTES # (AUTO) 1.8 K/uL (2.0-11.5); MONOCYTES # (AUTO) 0.4 K/uL (0.8-1.0); NEUTROPHILS # (AUTO) 2.7 K/uL (1.8-7.7); POTASSIUM 3.4 mmol/L (3.5-5.1)
[2017-05-31 18:50] LABS: ALBUMIN 3.8 g/dL (3.4-5.0); TOTAL BILIRUBIN 0.4 mg/dL (0.0-1.0)
[2017-05-31] MEDS ORDERED: POTASSIUM CHLORIDE 10 MEQ TABER PO ONE (18:50)
[2017-05-31] MEDS ORDERED: THIAMINE 100 MG TAB PO ONE (18:50)
--- NOTE | 2017-05-31 19:01 | NUR ---
SPOKE TO WINSOME JACOBSEN [facility].
--- NOTE | 2017-05-31 19:10 | NUR ---
CALLED HOUSE SUP FOR MISSING PO MEDS- FOLATE, THIAMINE, AWAITING
--- NOTE | 2017-05-31 19:10 | NUR ---
Pt report given to ANN-MARIE BRUCE. Transfer of care at this time.
[2017-05-31] MEDS ORDERED: ONDANSETRON 4 MG/2 ML VIAL IM/IVP PRN (19:25)
[2017-05-31] MEDS ORDERED: DOCUSATE SODIUM 100 MG GELCAP PO PRN (19:25)
[2017-05-31] MEDS ORDERED: ACETAMINOPHEN 325 MG TAB PO PRN (19:25)
[2017-05-31 19:42] LABS: APPEARANCE,URINE CLEAR (CLEAR); BILIRUBIN,URINE NEGATIVE (NEGATIVE); BLOOD, URINE NEGATIVE (NEGATIVE); COLOR,URINE YELLOW (YELLOW); LEUKOCYTE ESTERASE ,URINE NEGATIVE (NEGATIVE); NITRITE, URINE NEGATIVE (NEGATIVE); UGLUCOSE NEGATIVE (NEGATIVE)
--- NOTE | 2017-05-31 19:50 | NUR ---
FOLLOW UP CALL FOR HOUSE SUP FOR FOLLOWING MEDS: VITAMIN B1, FOLATE
[2017-05-31 19:53] LABS: BARBITURATE, URINE NEG. ng/ml (NEG <=200); BENZODIAZEPINE, URINE NEG. ng/mL (NEG <=200); CANNABINOID, URINE NEG. ng/mL (NEG <=50); COCAINE, URINE NEG. ng/mL (NEG <=300); OPIATE, URINE NEG. ng/mL (NEG <=2000); PHENCYCLIDINE SCREEN,URINE NEG. ng/mL (NEG <=25)
--- NOTE | 2017-05-31 20:05 | NUR ---
AMADO JACOBSEN MADE AWARE THIAMINE AND FOLATE NOT GIVEN
--- NOTE | 2017-05-31 20:05 | NUR ---
Patient will be admitted to care of [facility]. Admited to TELE. Will go to room 121A. Belongings list completed. BEDSIDE Report to AMADO.
[2017-05-31 20:10] LABS: PROTHROMBIN TIME 11.6 secs (10.8-13.4)
[2017-05-31 20:19] LABS: CHOL/HDL RATIO 4.9 (1-4.5); MAGNESIUM 1.7 mg/dL (1.8-2.4); PHOSPHORUS 3.8 mg/dL (2.5-4.9); THYROID STIMULATING HORMONE 0.63 uIU/mL (0.34-3.74)
[2017-05-31 20:20] VITALS: BP 126/76
--- NOTE | 2017-05-31 20:20 | NUR ---
Admitted from ER, with chief complaint of ALCOHOL INTOXICATION, DX ALCOHOL INTOXICATION. 56 y/o, Male, Anxious at times but cooperative, AOX4, AMBULATORY, ABLE TO VERBALIZE NEEDS. BUSINESS DEVELOPMENT PROFESSIONAL PLACED. PT DENIES CHEST PAIN, SOB OR S/S OF ACUTE DISTRESS. PT HAS L THIGH BRUISING AND HEMATOMA, SLIGHTLY TENDER TO TOUCH, PT REPORTS HAVING A FALL WHEN WE WAS INTOXICATED 2 WEEKS AGO. IV ACCESS ASYMPTOMATIC, PATENT AND INTACT, WILL ADMINISTER IVF ORDERED. DISCUSSED AND REVIEWED PLAN OF CARE WITH PT, PT VERBALIZED UNDERSTANDING. oriented to call light, bed, phone,television, bathroom, smoking policy, visiting hours, procedures, ID bracelet on. Belongings list checked. ALL NEEDS MET. SAFETY MEASURES ENSURED. CALL LIGHT WITHIN REACH.
[2017-05-31] MEDS: NACL 0.9% 1,000 ML IV SCH (20:44)
--- NOTE | 2017-05-31 20:44 | NUR ---
ADMINISTERED DUE MED THIAMINE PO NOT GIVEN IN ER DUE TO MED UNAVAILABLE. ADMINISTERED IVF WITH EDUCATION. PT VERBALIZED UNDERSTANDING.
[2017-05-31] MEDS: POTASSIUM CHLORIDE 10 MEQ TABER PO SCH (22:12)
[2017-05-31] MEDS: LORazepam 1 MG TAB PO PRN ×2 (22:13→23:21)
--- NOTE | 2017-05-31 22:14 | NUR ---
PT C/O ANXIETY, ADMINISTERED ATIVAN PO WITH EDUCATION. ADMINISTERED REMAINING DUE MEDS WITH EDUCATION. PT VERBALIZED UNDERSTANDING, TOLERATED MEDS WELL.
[2017-05-31] MEDS ORDERED: MAG SULF 2000 MG/WATER PREMIX 50 ML IV SCH (23:00)
--- NOTE | 2017-05-31 23:30 | NUR ---
PT C/O UNRELIEVED ANXIETY, ADMINISTERED ATIVAN PO PRN WITH EDUCATION, MD AWARE. ALL NEEDS MET. IVPB INFUSING WELL. SAFETY MEASURES ENSURED. CALL LIGHT WITHIN REACH.
[2017-06-01] VITALS: BP 141/76
[2017-06-01] MEDS: NACL 0.9% 1,000 ML IV SCH ×3 (03:04→18:58)
[2017-06-01 04:00] VITALS: BP 135/82
[2017-06-01] MEDS: KETOROLAC 30 MG/ML VIAL IVP PRN ×2 (04:35→17:05)
--- NOTE | 2017-06-01 04:35 | NUR ---
PT C/O R ARM PAIN, SEE PAIN ASSESSMENT, ADMINISTERED TORADOL IVP PRN WITH EDUCATION. PT VERBALIZED UNDERSTANDING, TOLERATED MED WELL. PT REPORTED THAT HE TAKES GABAPENTIN TID FOR FIBROMYALGIA, MADE MD AWARE.
[2017-06-01] MEDS: LORazepam 1 MG TAB PO SCH ×3 (05:02→20:42)
[2017-06-01 06:18] LABS: T4 (THYROXINE) 7.9 ug/dL (4.5-12.0)
--- NOTE | 2017-06-01 07:15 | NUR ---
Patient on tele monitor. Patient has NS 130ml/hr running in R AC. Room air with no s/s of distress. bed in low position, call light within reach. will continue to monitor.
--- NOTE | 2017-06-01 07:15 | NUR ---
Received report from lieutenant shift supervisor nurse. Patient stable, alert and oriented x4.
--- NOTE | 2017-06-01 07:15 | NUR ---
ENDORSED PLAN OF CARE TO AM NURSE. CONDITION STABLE.
[2017-06-01 07:35] LABS: ANION GAP 20.1 (8-16); CARBON DIOXIDE 19.8 mmol/L (21-32); CREATININE 0.9 mg/dL (0.7-1.3)
[2017-06-01 07:44] LABS: HEMATOCRIT 24.4 % (36-52); HEMOGLOBIN 7.4 g/dL (12.0-18.0); MEAN CORPUSCULAR HEMOGLOBIN 23 pg (27-31); MEAN CORPUSCULAR HGB CONC 31 g/dL (33-37); MEAN CORPUSCULAR VOLUME 74 fL (80-94); PLATELET COUNT (AUTO) 122 K/uL (140-450); RED CELL DISTRIBUTION WIDTH 19.9 % (11.6-13.7); WHITE BLOOD COUNT (AUTO) 6.1 K/uL (4.8-10.8)
[2017-06-01 07:48] LABS: POTASSIUM 2.9 mmol/L (3.5-5.1)
[2017-06-01 08:00] VITALS: BP 155/91
[2017-06-01] MEDS: THIAMINE 100 MG TAB PO SCH (08:11)
[2017-06-01] MEDS: LOSARTAN 50 MG TAB PO SCH (08:11)
[2017-06-01] MEDS: GABAPENTIN 300 MG CAP PO SCH ×3 (08:11→16:57)
[2017-06-01] MEDS: POTASSIUM CHLORIDE 10 MEQ TABER PO SCH ×2 (08:13→20:43)
[2017-06-01] MEDS: ATORVASTATIN 20 MG TAB PO SCH (08:13)
[2017-06-01] MEDS: PARoxetine 20 MG TAB PO SCH (08:13)
[2017-06-01] MEDS: MULTIVITAMIN 1 TAB PO SCH (08:13)
[2017-06-01] MEDS: amLODIPine 5 MG TAB PO SCH (08:21)
[2017-06-01] MEDS: FOLIC ACID 1 MG TAB PO SCH ×2 (08:21→08:22)
[2017-06-01] MEDS ORDERED: POTASSIUM CHLORIDE 40 MEQ, LIDOCAINE 1% 25 MG in NACL 0.9% 250 ML IV SCH (09:30)
--- NOTE | 2017-06-01 09:40 | NUR ---
CM NOTE INITIAL REVIEW FAXED TO [facility] [phone] # [phone] SANG EXT [phone]
--- NOTE | 2017-06-01 10:13 | NUR ---
PATIENT HAS BEEN SCREENED AND CATEGORIZED LOW NUTRITION RISK. PATIENT WILL BE SEEN WITHIN 7 DAYS OF ADMISSION. 06/06/[address]
[2017-06-01 10:28] LABS: EOSINOPHILS % (MANUAL) 3 % (0-4); LYMPHOCYTES % (MANUAL) 28 % (20-46); MONOCYTES % (MANUAL) 13 % (5-12)
[2017-06-01 12:00] VITALS: BP 161/83
[2017-06-01] MEDS ORDERED: MAGNESIUM OXIDE 400 MG TAB PO SCH (12:14)
[2017-06-01] MEDS ORDERED: POTASSIUM CHLORIDE 10 MEQ TABER PO SCH (13:00)
[2017-06-01 16:00] VITALS: BP 154/86
[2017-06-01 16:00] LABS: ANION GAP 16.3 (8-16); CARBON DIOXIDE 23.6 mmol/L (21-32); POTASSIUM 3.9 mmol/L (3.5-5.1)
--- NOTE | 2017-06-01 19:21 | NUR ---
Patient report given at bedside. Patient endorsed in stable condition.
--- NOTE | 2017-06-01 19:25 | NUR ---
RECEIVED REPORT FROM AM NURSE. AOX4, AMBULATORY, ABLE TO VERBALIZE NEEDS. MANAGER BABY IN PLACE. PT DENIES CHEST PAIN, SOB OR S/S OF ACUTE DISTRESS. PT HAS L THIGH BRUISING/FLUID COLLECTION. IV ACCESS ASYMPTOMATIC, PATENT AND INTACT, WILL ADMINISTER IVF ORDERED. DISCUSSED AND REVIEWED PLAN OF CARE WITH PT, PT VERBALIZED UNDERSTANDING. ALL NEEDS MET. SAFETY MEASURES ENSURED. CALL LIGHT WITHIN REACH.
[2017-06-01 20:00] VITALS: BP 142/92
--- NOTE | 2017-06-01 20:47 | NUR ---
ADMINISTERED DUE MEDS WITH EDUCATION, PT VERBALIZED UNDERSTANDING, TOLERATED MEDS WELL. ALL NEEDS MET. SAFETY MEASURES ENSURED. CALL LIGHT WITHIN REACH.
--- NOTE | 2017-06-01 23:30 | NUR ---
PT SLEEPING COMFORTABLY, AROUSABLE TO NAME, SPO2 97% ON ROOM AIR, RR 18 EVEN AND UNLABORED. ALL NEEDS MET. IVF INFUSING WELL. SAFETY MEASURES ENSURED. CALL LIGHT WITHIN REACH.
[2017-06-02] VITALS: BP 154/86
[2017-06-02] MEDS: NACL 0.9% 1,000 ML IV SCH ×3 (02:10→09:52)
[2017-06-02 04:00] VITALS: BP 155/95
[2017-06-02] MEDS: LORazepam 1 MG TAB PO SCH ×2 (04:12→12:38)
--- NOTE | 2017-06-02 04:12 | NUR ---
PT RESTING IN BED, SPO2 97% ON ROOM AIR, RR 18 EVEN AND UNLABORED. PT ABLE TO AMBULATE TO RESTROOM INDEPENDENTLY. ADMINISTERED DUE MED ATIVAN PO WITH EDUCATION. CHANGED IVF, IVF INFUSING WELL. ALL NEEDS MET. SAFETY MEASURES ENSURED. CALL LIGHT WITHIN REACH.
[2017-06-02 07:03] LABS: BASOPHILS % (AUTO) 0.8 % (0.0-2.0); EOSINOPHILS # (AUTO) 0.1 K/uL (0-0.4); EOSINOPHILS % (AUTO) 1.9 % (0.0-4.0); HEMATOCRIT 26.6 % (36-52); HEMOGLOBIN 8.1 g/dL (12.0-18.0); LYMPHOCYTES # (AUTO) 0.9 K/uL (2.0-11.5); LYMPHOCYTES % (AUTO) 17.3 % (20.5-51.1); MEAN CORPUSCULAR HEMOGLOBIN 23 pg (27-31); MEAN CORPUSCULAR HGB CONC 31 g/dL (33-37); MEAN CORPUSCULAR VOLUME 75 fL (80-94); MONOCYTES # (AUTO) 0.7 K/uL (0.8-1.0); MONOCYTES % (AUTO) 14.1 % (1.7-9.3); NEUTROPHILS # (AUTO) 3.5 K/uL (1.8-7.7); NEUTROPHILS % (AUTO) 65.9 % (42.2-75.2); PLATELET COUNT (AUTO) 91 K/uL (140-450); RED BLOOD CELL COUNT(AUTO) 3.56 MIL/uL (4.20-6.10); RED CELL DISTRIBUTION WIDTH 20.4 % (11.6-13.7); WHITE BLOOD COUNT (AUTO) 5.2 K/uL (4.8-10.8)
--- NOTE | 2017-06-02 07:10 | NUR ---
ENDORSED PLAN OF CARE TO AM NURSE. CONDITION STABLE. Addendum: 06/02/17 at 0718 by Jan Singh RN PT REFUSING IVF AT THIS TIME, ENDORSED TO AM NURSE
--- NOTE | 2017-06-02 07:10 | NUR ---
RECEIVED PATIENT REPORT AT BEDSIDE FROM NIGHTSHIFT NURSE. PATIENT IS ASLEEP BUT AROUSABLE. PATIENT ALERT AND ORIENTED X4 AT THIS TIME. PATIENT REFUSED IVF AT THIS TIME. WILL FOLLOW UP WITH DOCTOR. PATIENT IN SEMI-FOWLERS POSITION. PATIENT DOES NOT COMPLAIN OF PAIN OR SHOW SIGNS OF RESPIRATORY DISTRESS OR RESPIRATORY DEPRESSION. UPDATED BOARD OF PATIENT AND PLACED CALL LIGHT WITHIN REACH. WILL CONTINUE TO MONITOR PATIENT.
[2017-06-02 07:43] LABS: ANION GAP 16.8 (8-16); CARBON DIOXIDE 22.8 mmol/L (21-32); CREATININE 0.9 mg/dL (0.7-1.3); POTASSIUM 3.6 mmol/L (3.5-5.1)
[2017-06-02 07:45] LABS: MAGNESIUM 1.8 mg/dL (1.8-2.4); PHOSPHORUS 3.3 mg/dL (2.5-4.9)
[2017-06-02 08:00] VITALS: BP 147/98
[2017-06-02 08:18] LABS: FOLIC ACID 13.7 ng/mL (>3.0)
[2017-06-02] MEDS: MULTIVITAMIN 1 TAB PO SCH (08:43)
[2017-06-02] MEDS: FOLIC ACID 1 MG TAB PO SCH ×2 (08:43→09:00)
[2017-06-02] MEDS: ATORVASTATIN 20 MG TAB PO SCH (08:43)
[2017-06-02] MEDS: amLODIPine 5 MG TAB PO SCH (08:43)
[2017-06-02] MEDS: GABAPENTIN 300 MG CAP PO SCH ×2 (08:44→12:38)
[2017-06-02] MEDS: POTASSIUM CHLORIDE 10 MEQ TABER PO SCH (08:44)
[2017-06-02] MEDS: THIAMINE 100 MG TAB PO SCH (08:44)
[2017-06-02] MEDS: PARoxetine 20 MG TAB PO SCH (08:44)
[2017-06-02] MEDS: LOSARTAN 50 MG TAB PO SCH (08:44)
[2017-06-02] MEDS ORDERED: PARoxetine 20 MG TAB PO SCH (09:00)
--- NOTE | 2017-06-02 10:20 | NUR ---
PATIENT IS IN BED WITH NO COMPLAINTS OF PAIN OR RESPIRATORY DISTRESS. WILL CONTINUE TO MONITOR PATIENT.
[2017-06-02 12:00] VITALS: BP 148/92
--- NOTE | 2017-06-02 12:20 | NUR ---
PATIENT RESTING AT THIS TIME. NO SIGNS OF PAIN OR ANY SIGNS OF RESPIRATORY DISTRESS OR RESPIRATORY DEPRESSION. WILL CONTINUE TO MONITOR PATIENT.
--- NOTE | 2017-06-02 13:49 | NUR ---
PATIENT AWAKE AT THIS TIME. PATIENT SAYS, "MY RIDE WILL BE HERE AROUND 4 O CLOCK." PATIENT DOES NOT COMPLAIN OF ANY PAIN AND SHOWS NO SIGNS OF RESPIRATORY DISTRESS OR RESPIRATORY DEPRESSION. WILL CONTINUE TO MONITOR PATIENT.
--- NOTE | 2017-06-02 15:00 | NUR ---
PATIENT RESTING IN BED. NO SIGNS OF RESPIRATORY DISTRESS OR RESPIRATORY DEPRESSION. WILL CONTINUE TO MONITOR PATIENT.
[2017-06-02] MEDS ORDERED: ATI.5 PO (15:16)
[2017-06-02 16:00] VITALS: BP 143/90
--- NOTE | 2017-06-02 17:09 | NUR ---
PATIENT SIGNED ALL DISCHARGE INSTRUCTIONS AND IS AWARE OF DR. STEVENSON. DISCONNECTED PATIENT'S IV LINE WITH CATHETER INTACT. REMOVED TELEMETRY BOX OFF PATIENT. CUT OFF IDENTIFICATION BANDS OFF PATIENT. PATIENT IS IN STABLE CONDITION. PATIENT LEFT THE UNIT VIA WHEELCHAIR WITH SIGNIFICANT OTHER AND ALL BELONGINGS.
== END 2017-06-02 17:09 | disposition home or self-care (01) | DRG 775 ==
LOC: MED 16:57 → MTU 19:27
PROVIDERS: ADMIT Family Medicine Sports Medicine; ATTEND Family Medicine Sports Medicine
DX: F10.229 Alcohol dependence with intoxication, unspecified (principal); N17.0 Acute kidney failure with tubular necrosis; G92 Toxic encephalopathy; E87.0 Hyperosmolality and hypernatremia; S70.12XA Contusion of left thigh, initial encounter; D64.9 Anemia, unspecified; F10.20 Alcohol dependence, uncomplicated; F33.1 Major depressive disorder, recurrent, moderate; E83.42 Hypomagnesemia; E83.51 Hypocalcemia; I11.0 Hypertensive heart disease with heart failure; I70.0 Atherosclerosis of aorta; Y90.8 Blood alcohol level of 240 mg/100 ml or more; E87.6 Hypokalemia; F41.0 Panic disorder [episodic paroxysmal anxiety]; F41.1 Generalized anxiety disorder; G89.29 Other chronic pain; Z88.5 Allergy status to narcotic agent; Z88.0 Allergy status to penicillin; X58.XXXA Exposure to other specified factors, initial encounter; Y93.89 Activity, other specified; Y92.89 Other specified places as the place of occurrence of the external cause; Y99.8 Other external cause status
CPT/HCPCS: 36415; 71045; 76536; 80048; 80053; 80305; 81003; 82140; 82607; 82746; 83036; 83540; 83735; 84100; 84436; 84443; 84479; 85025; 85610; 85730; 87081; 93005; 99285; G0482; J1885; J2001; J3475; J3480; J7030; Q0092

== ENCOUNTER 2017-06-25 17:54 | Inpatient (IN) | payer OTHER ==
[~2017-06-25] VITALS: Ht 175.3 cm; Wt 93.9 kg
[~2017-06-25 17:54] MED LIST changes: -ONDA8ODT2 PO; -THIA-8 PO; +THIA100T31 PO
[2017-06-25 17:56] VITALS: BP 132/88
[2017-06-25] MEDS ORDERED: NACL 0.9% 1,500 ML IV ONE (18:10)
[2017-06-25 19:19] LABS: ALBUMIN 3.8 g/dL (3.4-5.0); ANION GAP 23.5 (8-16); CARBON DIOXIDE 21.7 mmol/L (21-32); POTASSIUM 3.2 mmol/L (3.5-5.1); TOTAL BILIRUBIN 0.7 mg/dL (0.0-1.0)
[2017-06-25] MEDS ORDERED: NACL 0.9% 1,000 ML IV ONE (20:10)
[2017-06-25] MEDS ORDERED: POTASSIUM CHLORIDE 10 MEQ TABER PO ONE (20:10)
[2017-06-25] MEDS ORDERED: MULTIVITAMIN-12 10 ML, THIAMINE 100 MG, MAGNESIUM SULFATE 50% 2,000 MG, FOLIC ACID 5 MG... IV ONE ×5 (20:55)
[2017-06-25] MEDS ORDERED: LORazepam 2 MG/ML VIAL IVP ONE (20:55)
[2017-06-25] MEDS ORDERED: MULTIVITAMIN-12 10 ML VIAL IV ONE (21:12)
[2017-06-25] MEDS ORDERED: FOLIC ACID 5 MG/ML SYR ONE (21:12)
[2017-06-25] MEDS ORDERED: THIAMINE 200 MG/2 ML VIAL ONE (21:12)
[2017-06-25] MEDS ORDERED: MAGNESIUM SULFATE 50% 1000 MG/2 ML VIAL IV ONE (21:12)
[2017-06-25] MEDS ORDERED: ACETAMINOPHEN 325 MG TAB PO PRN (21:15)
[2017-06-25] MEDS ORDERED: HYDROcodone/APAP 7.5/325 MG 1 TAB PO PRN (21:15)
[2017-06-25] MEDS ORDERED: ONDANSETRON 4 MG/2 ML VIAL IVP PRN (21:15)
[2017-06-25] MEDS ORDERED: LORazepam 2 MG/ML VIAL IVP PRN (21:20)
[2017-06-25 22:26] LABS: BASOPHILS # (AUTO) 0.1 K/uL (0.00-0.22); LYMPHOCYTES # (AUTO) 1.2 K/uL (2.0-11.5); MONOCYTES # (AUTO) 0.5 K/uL (0.8-1.0); MONOCYTES % (AUTO) 7.9 % (1.7-9.3); NEUTROPHILS # (AUTO) 4.4 K/uL (1.8-7.7)
[2017-06-25] MEDS: NACL 0.9% 1,000 ML IV SCH (22:34)
[2017-06-25 22:41] LABS: BASOPHILS % (AUTO) 2.3 % (0.0-2.0); EOSINOPHILS % (AUTO) 0.5 % (0.0-4.0); HEMATOCRIT 29.3 % (36-52); HEMOGLOBIN 8.8 g/dL (12.0-18.0); MEAN CORPUSCULAR HEMOGLOBIN 22 pg (27-31); MEAN CORPUSCULAR HGB CONC 30 g/dL (33-37); MEAN CORPUSCULAR VOLUME 71.3 fL (80-94); NEUTROPHILS % (AUTO) 70.3 % (42.2-75.2); PLATELET COUNT (AUTO) 135 K/uL (140-450); RED BLOOD CELL COUNT(AUTO) 4.11 MIL/uL (4.20-6.10); WHITE BLOOD COUNT (AUTO) 6.2 K/uL (4.8-10.8)
[2017-06-25 22:47] LABS: CHOL/HDL RATIO 3.5 (1-4.5); FREE T4 (FREE THYROXINE) 0.81 ng/dL (0.76-1.46); MAGNESIUM 1.5 mg/dL (1.8-2.4); THYROID STIMULATING HORMONE 0.67 uIU/mL (0.34-3.74)
[2017-06-25 23:40] LABS: PROTHROMBIN TIME 11.1 secs (10.8-13.4)
[2017-06-25 23:43] LABS: APPEARANCE,URINE CLEAR (CLEAR); BILIRUBIN,URINE NEGATIVE (NEGATIVE); BLOOD, URINE NEGATIVE (NEGATIVE); COLOR,URINE YELLOW (YELLOW); LEUKOCYTE ESTERASE ,URINE NEGATIVE (NEGATIVE); NITRITE, URINE NEGATIVE (NEGATIVE); UGLUCOSE NEGATIVE (NEGATIVE)
[2017-06-26 00:03] LABS: ACETAMINOPHEN < 0.5 ug/ml (10-30); SALICYLATE < 2.8 mg/dL (2.8-20.0)
[2017-06-26 00:16] VITALS: BP 140/73
[2017-06-26 00:19] LABS: BARBITURATE, URINE NEG. ng/ml (NEG <=200); BENZODIAZEPINE, URINE NEG. ng/mL (NEG <=200); CANNABINOID, URINE NEG. ng/mL (NEG <=50); COCAINE, URINE NEG. ng/mL (NEG <=300); OPIATE, URINE NEG. ng/mL (NEG <=2000); PHENCYCLIDINE SCREEN,URINE NEG. ng/mL (NEG <=25)
[2017-06-26 01:29] LABS: RBC,URINE NONE SEEN /HPF (0-5); WBC,URINE 0-5 (RARE) /HPF (0-5)
[2017-06-26] MEDS: NACL 0.9% 1,000 ML IV SCH ×2 (04:31→14:05)
[2017-06-26] MEDS: LORazepam 1 MG TAB PO SCH ×2 (04:31→12:37)
[2017-06-26 04:32] VITALS: BP 133/75
[2017-06-26 08:00] VITALS: BP 144/85
[2017-06-26 08:28] LABS: CREATININE 0.8 mg/dL (0.7-1.3)
[2017-06-26 08:30] LABS: BASOPHILS % (AUTO) 0.6 % (0.0-2.0); EOSINOPHILS # (AUTO) 0.1 K/uL (0-0.4); EOSINOPHILS % (AUTO) 1.6 % (0.0-4.0); HEMATOCRIT 23.4 % (36-52); HEMOGLOBIN 7.4 g/dL (12.0-18.0); LYMPHOCYTES # (AUTO) 0.8 K/uL (2.0-11.5); LYMPHOCYTES % (AUTO) 22.6 % (20.5-51.1); MEAN CORPUSCULAR HEMOGLOBIN 22 pg (27-31); MEAN CORPUSCULAR HGB CONC 32 g/dL (33-37); MEAN CORPUSCULAR VOLUME 70.2 fL (80-94); MONOCYTES # (AUTO) 0.4 K/uL (0.8-1.0); MONOCYTES % (AUTO) 12.4 % (1.7-9.3); NEUTROPHILS # (AUTO) 2.2 K/uL (1.8-7.7); NEUTROPHILS % (AUTO) 62.8 % (42.2-75.2); RED BLOOD CELL COUNT(AUTO) 3.33 MIL/uL (4.20-6.10); RED CELL DISTRIBUTION WIDTH 22.3 % (11.6-13.7); WHITE BLOOD COUNT (AUTO) 3.4 K/uL (4.8-10.8)
[2017-06-26 08:45] LABS: MAGNESIUM 1.5 mg/dL (1.8-2.4)
[2017-06-26] MEDS ORDERED: amLODIPine 5 MG TAB PO SCH (09:00)
[2017-06-26] MEDS ORDERED: PARoxetine 20 MG TAB PO SCH (09:00)
[2017-06-26] MEDS ORDERED: ATORVASTATIN 20 MG TAB PO SCH (09:00)
[2017-06-26] MEDS ORDERED: MULTIVITAMIN 1 TAB PO SCH (09:00)
[2017-06-26] MEDS ORDERED: FOLIC ACID 1 MG TAB PO SCH (09:00)
[2017-06-26] MEDS ORDERED: THIAMINE 100 MG TAB PO SCH (09:00)
[2017-06-26] MEDS ORDERED: LOSARTAN 50 MG TAB PO SCH (09:00)
[2017-06-26] MEDS ORDERED: CALCIUM CARB/VIT-D 500 MG/200 IU 1 TAB PO SCH (09:00)
[2017-06-26] MEDS ORDERED: DOCUSATE SODIUM 100 MG GELCAP PO SCH (09:00)
[2017-06-26] MEDS ORDERED: MAG SULF 2000 MG/WATER PREMIX 50 ML IV ONE (09:20)
[2017-06-26] MEDS ORDERED: GABAPENTIN 100 MG CAP PO SCH ×2 (09:30→13:00)
[2017-06-26] MEDS ORDERED: MAG SULF 2000 MG/WATER PREMIX 50 ML IV SCH (10:00)
[2017-06-26 11:34] LABS: PLATELET COUNT (AUTO) 73 K/uL (140-450)
[2017-06-26 12:00] VITALS: BP 130/79
[2017-06-26] MEDS ORDERED: POTASSIUM CHLORIDE 40 MEQ, LIDOCAINE 1% 25 MG in NACL 0.9% 250 ML IV SCH (12:00)
[2017-06-26] MEDS: GABAPENTIN 600 MG, GABAPENTIN 200 MG PO SCH ×4 (12:38→18:02)
[2017-06-26] MEDS ORDERED: THIA100T31 PO (15:08)
[2017-06-26] MEDS ORDERED: LORA0.5T6 PO (15:08)
[2017-06-26] MEDS ORDERED: FOLI1TAB90 PO (15:08)
[2017-06-26 16:00] VITALS: BP 141/83
[2017-06-26 17:24] LABS: ANION GAP 14.5 (8-16); CARBON DIOXIDE 25.8 mmol/L (21-32); CREATININE 0.8 mg/dL (0.7-1.3); POTASSIUM 3.3 mmol/L (3.5-5.1)
[2017-06-26] MEDS ORDERED: POTASSIUM CHLORIDE 10 MEQ TABER PO SCH (17:35)
[2017-06-27 09:07] LABS: TRANSFERRIN 312 mg/dL (200-370)
[2017-06-27 15:11] LABS: FOLIC ACID > 20.00 ng/mL (>3.0)
[2017-06-27 21:55] LABS: FERRITIN 19 ng/mL (30 - 400)
== END 2017-06-26 18:55 | disposition home or self-care (01) | DRG 775 ==
LOC: MED 17:54 → MTU 21:17
PROVIDERS: ADMIT Family Medicine Sports Medicine; ATTEND Family Medicine Sports Medicine
DX: F10.129 Alcohol abuse with intoxication, unspecified (principal); G92 Toxic encephalopathy; E87.0 Hyperosmolality and hypernatremia; D69.6 Thrombocytopenia, unspecified; E83.42 Hypomagnesemia; F33.1 Major depressive disorder, recurrent, moderate; E83.51 Hypocalcemia; Y90.8 Blood alcohol level of 240 mg/100 ml or more; E87.6 Hypokalemia; I10 Essential (primary) hypertension; D50.9 Iron deficiency anemia, unspecified; M79.7 Fibromyalgia; E87.1 Hypo-osmolality and hyponatremia; Z88.5 Allergy status to narcotic agent; Z88.0 Allergy status to penicillin; Z79.899 Other long term (current) drug therapy; Z91.5 Personal history of self-harm; Z91.19 Patient's noncompliance with other medical treatment and regimen
CPT/HCPCS: 36415; 71045; 80048; 80053; 80305; 81001; 82150; 82607; 82728; 82746; 83036; 83540; 83690; 83735; 83880; 84100; 84439; 84443; 84484; 85025; 85045; 85610; 85730; 87081; 93005; 96361; 96365; 96375; 97110; 97140; 99285; A9153; G0480; G0482; J2001; J2060; J3411; J3475; J3480; J3490; J7030; Q0092

== ENCOUNTER 2017-07-16 17:46 | Inpatient (IN) | payer OTHER ==
[~2017-07-16] VITALS: Ht 175.3 cm; Wt 101.6 kg
[~2017-07-16 17:46] MED LIST changes: -ATI.5 PO; +LORA0.5T6 PO
[2017-07-16 18:03] VITALS: BP 135/78
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
--- NOTE | 2017-07-16 19:00 | NUR ---
PT SITTING QUIETLY;CALM, NO ACUTE DISTRESS NOTED;WILL CONTINUE TO MONITOR PT.
[2017-07-16 19:02] LABS: BASOPHILS % (AUTO) 0.5 % (0.0-2.0); EOSINOPHILS # (AUTO) 0.2 K/uL (0-0.4); EOSINOPHILS % (AUTO) 2.5 % (0.0-4.0); HEMOGLOBIN 10.2 g/dL (12.0-18.0); LYMPHOCYTES # (AUTO) 1.8 K/uL (2.0-11.5); LYMPHOCYTES % (AUTO) 22.5 % (20.5-51.1); MEAN CORPUSCULAR HEMOGLOBIN 22 pg (27-31); MEAN CORPUSCULAR HGB CONC 31 g/dL (33-37); MEAN CORPUSCULAR VOLUME 72.3 fL (80-94); MONOCYTES # (AUTO) 0.7 K/uL (0.8-1.0); MONOCYTES % (AUTO) 9.4 % (1.7-9.3); NEUTROPHILS # (AUTO) 5.1 K/uL (1.8-7.7); NEUTROPHILS % (AUTO) 65.1 % (42.2-75.2); PLATELET COUNT (AUTO) 355 K/uL (140-450); RED BLOOD CELL COUNT(AUTO) 4.57 MIL/uL (4.20-6.10); RED CELL DISTRIBUTION WIDTH 26.2 % (11.6-13.7); WHITE BLOOD COUNT (AUTO) 7.8 K/uL (4.8-10.8)
[2017-07-16 19:06] LABS: APPEARANCE,URINE CLEAR (CLEAR); BILIRUBIN,URINE NEGATIVE (NEGATIVE); BLOOD, URINE NEGATIVE (NEGATIVE); LEUKOCYTE ESTERASE ,URINE NEGATIVE (NEGATIVE); NITRITE, URINE NEGATIVE (NEGATIVE); UGLUCOSE NEGATIVE (NEGATIVE)
[2017-07-16 19:15] LABS: COLOR,URINE STRAW (YELLOW)
[2017-07-16 19:30] LABS: BARBITURATE, URINE NEG. ng/ml (NEG <=200); BENZODIAZEPINE, URINE NEG. ng/mL (NEG <=200); CANNABINOID, URINE NEG. ng/mL (NEG <=50); COCAINE, URINE NEG. ng/mL (NEG <=300); OPIATE, URINE NEG. ng/mL (NEG <=2000); PHENCYCLIDINE SCREEN,URINE NEG. ng/mL (NEG <=25)
[2017-07-16 19:33] LABS: ASPARTATE AMINOTRANSFERASE 74 U/L (15-37); CARBON DIOXIDE 21.8 mmol/L (21-32); CHLORIDE 99 mmol/L (98-107); CREATININE 1.3 mg/dL (0.7-1.3); GFR ARICAN-AMERICAN 73 mL/min (>90); GLUCOSE 90 mg/dL (74-106); SODIUM SERUM 138 mmol/L (136-145); TOTAL BILIRUBIN 0.4 mg/dL (0.0-1.0); UREA NITROGEN, BLOOD 8 mg/dL (7-18)
[2017-07-16 19:36] LABS: ACETAMINOPHEN < 0.5 ug/ml (10-30); SALICYLATE < 2.8 mg/dL (2.8-20.0)
--- NOTE | 2017-07-16 19:39 | NUR ---
CRITICAL LAB VALUE RECIEVED. POTASSIUM OF 2.8. DR JIMENEZ NOTIFIED IMMEDIATELY.
[2017-07-16 19:40] LABS: POTASSIUM 2.8 mmol/L (3.5-5.1)
--- NOTE | 2017-07-16 19:42 | NUR ---
Dr. White evaluating patient.
--- NOTE | 2017-07-16 20:00 | NUR ---
PT SITTING IN CHAIR. CALM AND COOPERATIVE. POSITIONED FOR COMFORT. VSS. CONTINUE TO MONITOR.
[2017-07-16] MEDS ORDERED: NACL 0.9% 1,000 ML IV ONE (20:15)
[2017-07-16] MEDS ORDERED: POTASSIUM CHLORIDE 10 MEQ TABER PO ONE (20:15)
--- NOTE | 2017-07-16 21:00 | NUR ---
PT SITTING IN CHAIR. CALM AND COOPERATIVE. POSITIONED FOR COMFORT. BLANKET AND WATER PROVIDED. VSS. CONTINUE TO MONITOR.
--- NOTE | 2017-07-16 22:00 | NUR ---
PT SITTING IN CHAIR. CALM AND COOPERATIVE. POSITIONED FOR COMFORT. VSS. CONTINUE TO MONITOR.
[2017-07-16] MEDS ORDERED: GABAPENTIN 300 MG CAP PO ONE (22:10)
[2017-07-16] MEDS ORDERED: GABAPENTIN 300 MG CAP ONE (22:24)
--- NOTE | 2017-07-16 23:10 | NUR ---
PT SITTING IN CHAIR. CALM AND COOPERATIVE. POSITIONED FOR COMFORT. VSS. CONTINUE TO MONITOR. MEAL OFFERED.
--- NOTE | 2017-07-16 23:40 | NUR ---
PT MOVED TO BED 10
--- NOTE | 2017-07-16 23:41 | NUR ---
Pt ambulated to bed 10. Curtain pulled back. Driect supervision by staff and RN.
--- NOTE | 2017-07-17 01:07 | NUR ---
PT REQUESTED MEAL TRAY; MANUEL KELSEY SUP NOTIFIED, BROUGHT TO PT AT BEDSIDE
--- NOTE | 2017-07-17 01:11 | NUR ---
PT IN BED. X2 SIDE RAILS UP. BED LOW. CALM AND COOPERATIVE. POSITIONED FOR COMFORT. VSS. CONTINUE TO MONITOR.
--- NOTE | 2017-07-17 02:00 | NUR ---
PT IN BED. X2 SIDE RAILS UP. BED LOW. CALM AND COOPERATIVE. POSITIONED FOR COMFORT. VSS. CONTINUE TO MONITOR.
--- NOTE | 2017-07-17 03:00 | NUR ---
PT IN BED. X2 SIDE RAILS UP. BED LOW. CALM AND COOPERATIVE. POSITIONED FOR COMFORT. VSS. CONTINUE TO MONITOR.
[2017-07-17] MEDS ORDERED: IBUPROFEN 800 MG TAB PO ONE (03:50)
--- NOTE | 2017-07-17 04:00 | NUR ---
PT IN BED. X2 SIDE RAILS UP. BED LOW. CALM AND COOPERATIVE. POSITIONED FOR COMFORT. VSS. CONTINUE TO MONITOR.
--- NOTE | 2017-07-17 04:19 | NUR ---
James medeiros in [facility] - 07/17/17 at 0421 by KRISTYN PT MOVED TO BED 10
--- NOTE | 2017-07-17 04:21 | NUR ---
PT MOVED TO BED 4
--- NOTE | 2017-07-17 04:52 | NUR ---
Packet Faxed to the following facilities [facility], [facility], [facility] , [facility], [facility] and [facility] , At this time there no vacancy , will continue to call for placement thru shift.ER made aware.
[2017-07-17] MEDS ORDERED: ONDANSETRON 4 MG/2 ML VIAL IVP PRN (05:00)
[2017-07-17] MEDS ORDERED: ACETAMINOPHEN 325 MG TAB PO PRN (05:00)
[2017-07-17] MEDS ORDERED: LORazepam 2 MG/ML VIAL IVP PRN (05:00)
--- NOTE | 2017-07-17 05:00 | NUR ---
PT IN BED. X2 SIDE RAILS UP. BED LOW. CALM AND COOPERATIVE. POSITIONED FOR COMFORT. VSS. CONTINUE TO MONITOR.
[2017-07-17] MEDS ORDERED: GABA300C PO (05:38)
[2017-07-17 05:55] LABS: PROTHROMBIN TIME 11.9 secs (10.8-13.4)
--- NOTE | 2017-07-17 06:05 | NUR ---
RECD FROM ER VIA [facility], AWAKE, A/0X4. RESPIRATION EVEN AND UNLABORED. IV SALINE LOCK AT THE RIGHT HAND G18, PATIENT AND INTACT. ABLE TO AMBULATE INDEPENDENTLY. SKIN INTACT. NOTED BRUISE ON THE LEFT INNER THIGH. COMPLAINT OF PAIN/TENDERNESS AT THE RIGHT UPPER SHOULDER, 8/10,BILATERAL ARMS, PAIN DESCRIBED TINGLY. MADE COMFORTABLE IN BED. VS STABLE.
--- NOTE | 2017-07-17 06:10 | NUR ---
REPORT GIVEN AND CARE TRANSFERED TO [facility] ROOM 109A. TRANSFERED VIA GURNEY WITH VSS.
--- NOTE | 2017-07-17 06:15 | NUR ---
ASSUMED CONTINUITY OF CARE. NO SIGNS AND SYMPTOMS OF ACUTE DISTRESS NOTICED. KEEP COMFORTABLE ON BED. EXPLAINED DIAGNOSIS, PLAN OF CARE, PAIN MANAGEMENT TEACHING, DIET. VERBALIZED UNDERSTANDING. ADMISSION ASSESSMENT DONE. SKIN ON LLE, NOTED. CLOSELY MONITORED 1:1.
--- NOTE | 2017-07-17 06:15 | NUR ---
ENDORSED TO MARIA ELENA GALLOWAY FOR ADMISSION AND CONTINUITY OF CARE.
[2017-07-17] MEDS ORDERED: POTASSIUM CHLORIDE 40 MEQ, LIDOCAINE 1% 25 MG in NACL 0.9% 250 ML IV ONE (06:25)
--- NOTE | 2017-07-17 07:30 | NUR ---
Patient's Plan of Care was discussed and reviewed with FIRE CONTROLMAN: FRANCISCA.
--- NOTE | 2017-07-17 07:40 | NUR ---
PAGED DR. SALEH AT REGARDING PT. CONSULT. LEFT MESSAGE AND CALL BACK NUMBER. INFORMED CHARGE NURSE BRAYAN FARRIS.
--- NOTE | 2017-07-17 07:50 | NUR ---
DR. DAPHNE MD RESIDENTS, AND CHARGE NURSE CAME AND MADE THEIR AM ROUNDS. PT. CALM AND COOPERATIVE.
[2017-07-17 08:00] VITALS: BP 154/82
[2017-07-17 08:09] LABS: CHOL/HDL RATIO 4.2 (1-4.5); FREE T4 (FREE THYROXINE) 1.15 ng/dL (0.76-1.46); MAGNESIUM 1.5 mg/dL (1.8-2.4); THYROID STIMULATING HORMONE 0.27 uIU/mL (0.34-3.74)
[2017-07-17] MEDS: MULTIVITAMIN 1 TAB PO SCH (08:50)
[2017-07-17] MEDS: THIAMINE 100 MG TAB PO SCH (08:51)
[2017-07-17] MEDS: FOLIC ACID 1 MG TAB PO SCH (08:51)
[2017-07-17] MEDS: LOSARTAN 50 MG TAB PO SCH (08:51)
[2017-07-17] MEDS: PARoxetine 20 MG TAB PO SCH (08:51)
[2017-07-17] MEDS: amLODIPine 5 MG TAB PO SCH (08:52)
[2017-07-17] MEDS: DOCUSATE SODIUM 100 MG GELCAP PO SCH ×2 (08:52→21:00)
[2017-07-17] MEDS: ATORVASTATIN 20 MG TAB PO SCH (08:52)
--- NOTE | 2017-07-17 10:00 | NUR ---
INFORMED DR. CHACON ABOUT PT. MAG 1.5 AND PT. REQUESTED GABAPENTIN FOR LEFT ARM PAIN. PER DR. CHACON, HE WILL PUT ORDER.
--- NOTE | 2017-07-17 10:18 | NUR ---
DR. CHACON WENT INSIDE PT. ROOM AND SPOKE TO PT. AT BEDSIDE. PT. CALM, AND COOPERATIVE. NO ABNORMAL BEHAVIOR OBSERVED.
[2017-07-17] MEDS ORDERED: GABAPENTIN 100 MG CAP PO SCH (10:33)
--- NOTE | 2017-07-17 10:37 | NUR ---
SALVAGE WORKER AUSTIN CAME, AND SPOKE TO PT. AT BEDSIDE. PT. CALM AND COOPERATIVE.
--- NOTE | 2017-07-17 11:36 | NUR ---
PATIENT HAS BEEN SCREENED AND CATEGORIZED LOW NUTRITION RISK. PATIENT WILL BE SEEN WITHIN 7 DAYS OF ADMISSION. 07/23/[address] Addendum: 07/17/17 at [address] PATIENT HAS BEEN RESCREENED AND RECATEGORIZED MODERATE NUTRITION RISK. PATIENT WILL BE SEEN WITHIN 3-5 DAYS OF ADMISSION. 07/19/17 - 07/21/[address]
--- NOTE | 2017-07-17 11:59 | NUR ---
CM NOTE INITIAL REVIEW FAXED TO MARY [phone] # [phone] [facility] EXT [phone]
[2017-07-17 12:00] VITALS: BP 131/77
--- NOTE | 2017-07-17 13:37 | NUR ---
INFORMED DR. CHACON ONCE AGAIN ABOUT PT. MAG 1.5 AND ASKED FOR ORDER. ALSO INFORMED CHARGE NURSE BRAYAN FARRIS.
--- NOTE | 2017-07-17 15:38 | NUR ---
DR. CARVER WENT INSIDE PT. ROOM AND SPOKE TO PT. AT BEDSIDE. PT. CALM AND COOPERATIVE.
--- NOTE | 2017-07-17 15:45 | NUR ---
PER DR. CARVER, PT. DOES NOT MEET 5150 CRITERIA AND NO NEED FOR SITTER 1:1. INFORMED CHARGE NURSE BRAYAN FARRIS.
[2017-07-17 16:00] VITALS: BP 133/78
[2017-07-17] MEDS ORDERED: MAG SULF 2000 MG/WATER PREMIX 50 ML IV SCH ×2 (17:00→20:00)
--- NOTE | 2017-07-17 19:15 | NUR ---
BEDSIDE REPORT GIVEN TO YASMINE LORA. IVF INFUSING WELL. IN STABLE CONDITION.
--- NOTE | 2017-07-17 19:16 | NUR ---
RECD. RESTING IN BED, AWAKE, A/OX4. RESPIRATION EVEN AND UNLABORED. MG RIDER INFUSING, RIGHT HAND G18. AMBULATING INDEPENDENTLY TO BR. PLAN OF CARE FOR THE SHIFT DISCUSSED. VERBALIZED UNDERSTANDING. STILL WITH SORENESS AT THE RIGHT SHOULDERS 07/03, WILL MEDICATE ORDERED. WANTS TO GO HOME TONIGHT, EXPLAINED THAT ANOTHER BAG OF MG RIDER WILL BE INFUSED. WILL INFORMED MD OF HIS DESIRE.
[2017-07-17 20:00] VITALS: BP 135/73
--- NOTE | 2017-07-17 20:24 | NUR ---
Patient's Plan of Care was discussed and reviewed with NURSING CARE PARTNER: YASMINE MCLEAN
[2017-07-17] MEDS ORDERED: HYDROcodone/APAP 7.5/325 MG 1 TAB PO PRN (20:50)
[2017-07-17] MEDS: GABAPENTIN 300 MG CAP PO SCH (20:55)
--- NOTE | 2017-07-17 21:00 | NUR ---
DUE PO MEDICATION GIVEN, REFUSED COLACE STATED "I DON'T NEED IT".
--- NOTE | 2017-07-17 21:20 | NUR ---
TRANSFERRED TO ROOM 111B.
[2017-07-17] MEDS ORDERED: KETOROLAC 30 MG/ML VIAL IVP PRN (21:50)
[2017-07-17] MEDS ORDERED: TEMAZEPAM 15 MG CAP PO PRN (23:20)
[2017-07-18] VITALS: BP 122/71
--- NOTE | 2017-07-18 00:01 | NUR ---
per RN pt is no longer a pysch pt , and will no longer need to be placed , cleared by DR CARVER per YASMINE RN.
--- NOTE | 2017-07-18 00:14 | NUR ---
UNABLE TO SLEEP, MEDICATED WITH RESTORIL 30 MG. PO BY ANN-MARIE JOHN.
--- NOTE | 2017-07-18 01:10 | NUR ---
SLEEPING COMFORTABLY IN BED.
[2017-07-18 03:26] VITALS: BP 133/77
--- NOTE | 2017-07-18 03:45 | NUR ---
STILL SLEEPING COMFORTABLY, DENIES PAIN 0/10.
--- NOTE | 2017-07-18 04:45 | NUR ---
VS STABLE. NO COMPLAINT OF PAIN 0/10.
--- NOTE | 2017-07-18 06:32 | NUR ---
ABLE TO SLEEP WELL. WILL ENDORSE TO AM NURSE FOR CONTINUITY OF CARE.
--- NOTE | 2017-07-18 07:10 | NUR ---
ENDORSED TO MARIA ELENA GALLOWAY FOR CONTINUITY OF CARE.
--- NOTE | 2017-07-18 07:10 | NUR ---
ASSUMED CONTINUITY OF CARE. NO SIGNS AND SYMPTOMS OF ACUTE DISTRESS NOTED. INITIAL ASSESSMENT DONE. EXPLAINED DIAGNOSIS, PLAN OF CARE, PAIN MANAGEMENT TEACHING, USE OF CALL LIGHT/BED/TV/BATHROOM. VERBALIZED UNDERSTANDING. FALL PRECAUTION APPLIED. CALL LIGHT WITHIN REACH.
[2017-07-18 07:11] LABS: ANION GAP 14.2 (8-16); CARBON DIOXIDE 25.2 mmol/L (21-32); CREATININE 0.9 mg/dL (0.7-1.3); POTASSIUM 3.4 mmol/L (3.5-5.1)
[2017-07-18 07:17] LABS: BASOPHILS % (AUTO) 0.6 % (0.0-2.0); EOSINOPHILS # (AUTO) 0.2 K/uL (0-0.4); EOSINOPHILS % (AUTO) 3.3 % (0.0-4.0); HEMATOCRIT 32.1 % (36-52); LYMPHOCYTES # (AUTO) 1.2 K/uL (2.0-11.5); MAGNESIUM 2.5 mg/dL (1.8-2.4); MEAN CORPUSCULAR HEMOGLOBIN 23 pg (27-31); MEAN CORPUSCULAR HGB CONC 31 g/dL (33-37); MEAN CORPUSCULAR VOLUME 72.2 fL (80-94); MONOCYTES % (AUTO) 19.2 % (1.7-9.3); NEUTROPHILS # (AUTO) 2.8 K/uL (1.8-7.7); NEUTROPHILS % (AUTO) 53.9 % (42.2-75.2); PHOSPHORUS 4.1 mg/dL (2.5-4.9); PLATELET COUNT (AUTO) 182 K/uL (140-450); RED BLOOD CELL COUNT(AUTO) 4.45 MIL/uL (4.20-6.10); WHITE BLOOD COUNT (AUTO) 5.1 K/uL (4.8-10.8)
[2017-07-18 08:00] VITALS: BP 128/76
--- NOTE | 2017-07-18 08:00 | NUR ---
CM NOTE CONCURRENT REVIEW FAXED TO MARY [phone] # [phone] [facility] EXT [phone]
[2017-07-18] MEDS: GABAPENTIN 300 MG CAP PO SCH (08:39)
[2017-07-18] MEDS: LOSARTAN 50 MG TAB PO SCH (08:40)
[2017-07-18] MEDS: MULTIVITAMIN 1 TAB PO SCH (08:40)
[2017-07-18] MEDS: ATORVASTATIN 20 MG TAB PO SCH (08:40)
[2017-07-18] MEDS: THIAMINE 100 MG TAB PO SCH (08:41)
[2017-07-18] MEDS: FOLIC ACID 1 MG TAB PO SCH (08:41)
[2017-07-18] MEDS: amLODIPine 5 MG TAB PO SCH (08:41)
[2017-07-18] MEDS: PARoxetine 20 MG TAB PO SCH (08:41)
[2017-07-18] MEDS: DOCUSATE SODIUM 100 MG GELCAP PO SCH (08:42)
--- NOTE | 2017-07-18 10:38 | NUR ---
WENT TO BATHROOM WITHOUT ASSISTANCE. TOLERATED WELL. NO C/O PAIN. NO SOB, NOTED.
[2017-07-18 12:00] VITALS: BP 120/75
[2017-07-18] MEDS ORDERED: POTASSIUM CHLORIDE 10 MEQ TABER PO SCH (13:00)
--- NOTE | 2017-07-18 13:30 | NUR ---
INFORMED DR. CHACON THAT PT. REQUESTED TO BE D/C AROUND 1830 DUE TO PT. GIRLFRIEND WAS ONLY AVAILABLE TO MARKET RESEARCH EXECUTIVE PT. ONLY THAT TIME. DR. MO SAID "THAT'S FINE." INFORMED CHARGE NURSE BRAYAN FARRIS.
--- NOTE | 2017-07-18 13:56 | NUR ---
WATCHING TV AT THIS TIME. NO DISCOMFORT NOTICED. CALL LIGHT WITHIN REACH.
[2017-07-18 16:00] VITALS: BP 126/86
--- NOTE | 2017-07-18 16:57 | NUR ---
EXPLAINED TO PT. ABOUT MD D/C ORDER. D/C INSTRUCTION AND TEACHING, DIAGNOSIS, PAIN MANAGEMENT TEACHING, F/U WITH DR. DION HOBBS IN 3 TO 5 BUSINESS DAYS AFTER D/C, COUNSELING APPOINTMENT WITH [facility] IN [place], CONTINUATION OF HOME MEDICATION LIST, DIET. VERBALIZED UNDERSTANDING.
--- NOTE | 2017-07-18 18:25 | NUR ---
D/C HOME VIA WC. AWAKE, ALERT, AND ORIENTED X4. SPEECH CLEAR. NO C/O PAIN. NO SOB, NOTED. IN STABLE CONDITION. INFORMED CHARGE NURSE BRAYAN FARRIS.
== END 2017-07-18 18:25 | disposition home or self-care (01) | DRG 425 ==
LOC: MED 17:46 → MTU 07-17 05:00
PROVIDERS: ADMIT Family Medicine Sports Medicine; ATTEND Family Medicine Sports Medicine
DX: E87.6 Hypokalemia (principal); R45.851 Suicidal ideations; F33.1 Major depressive disorder, recurrent, moderate; I10 Essential (primary) hypertension; M79.7 Fibromyalgia; E83.41 Hypermagnesemia; D64.9 Anemia, unspecified; Z88.6 Allergy status to analgesic agent; Z88.0 Allergy status to penicillin; Z91.5 Personal history of self-harm; Z72.89 Other problems related to lifestyle; F10.239 Alcohol dependence with withdrawal, unspecified; Y90.7 Blood alcohol level of 200-239 mg/100 ml
CPT/HCPCS: 36415; 80048; 80053; 80305; 81003; 82150; 83036; 83690; 83735; 83880; 84100; 84439; 84443; 85025; 85610; 85730; 87081; 96360; 99285; G0480; G0482; J1885; J2001; J3475; J3480; J7030

== ENCOUNTER 2017-11-23 13:07 | Emergency (ER) | payer OTHER ==
[~2017-11-23] VITALS: Ht 175.3 cm; Wt 88.5 kg
[~2017-11-23 13:07] MED LIST changes: +GABA300C PO; -LORA0.5T6 PO; +THIA-34 PO; -THIA100T31 PO
--- NOTE | 2017-11-23 13:09 | NUR ---
PT BIBA BLS TO BED 9
[2017-11-23 13:10] VITALS: BP 135/91
--- NOTE | 2017-11-23 13:13 | NUR ---
PT BEDSIDE TRIAGED IN ED BED 9. BIBA C/O TAKING UNKNOWN AMT OF VODKA THIS AM AND WOULD LIEK TO BE SEEN. NO INJURIES, NO CP/SOB. PT HAS STEADY GAIT TO STRETCHER. A/OX4 NO COMPLAINTS AT THIS TIME. PLACED ON FULL MONITOR.
--- NOTE | 2017-11-23 15:00 | NUR ---
FODennis BOWERY PROVIDED TO PT
[2017-11-23 15:55] VITALS: BP 134/80
--- NOTE | 2017-11-23 15:55 | NUR ---
Patient discharged with v/s stable. Written and verbal after care instructions given and explained. Patient verbalized understanding. Ambulatory with steady gait. All questions addressed prior to discharge. Advised to follow up with PMD.
== END 2017-11-23 15:55 | disposition home or self-care (01) ==
LOC: MED 13:07
DX: F10.129 Alcohol abuse with intoxication, unspecified (principal); I10 Essential (primary) hypertension; Z88.0 Allergy status to penicillin; Z88.8 Allergy status to other drugs, medicaments and biological substances; Z79.899 Other long term (current) drug therapy
CPT/HCPCS: 99283

== ENCOUNTER 2018-05-30 17:46 | Inpatient (IN) | payer OTHER ==
[~2018-05-30] VITALS: Ht 175.3 cm; Wt 101.6 kg
--- NOTE | 2018-05-30 17:46 | NUR ---
JOSSIE POLLOCK, CURRENTLY AWAITING BED
--- NOTE | 2018-05-30 17:52 | NUR ---
PT TAKEN TO BED 12 BY EMS CREW
[2018-05-30 17:55] VITALS: BP 137/82
--- NOTE | 2018-05-30 18:05 | NUR ---
REX FROM PRIVATE HOME. EKG DONE IN FIELD. AA0X4. VSS AT THIS TIME. NO DISTRESS. PT STATES HE HAS BEEN DRINKING ALL DAY LONG. PATIENT STATES HE HAS NO INTENT TO HARM HIMSELF. BED IS DOWN, LOCKED, BED RAIL X 1, ERMD NOTIFIED OF PATIENT STATUS HX:HTN,ALCOHOLISM. MEDS AT BEDSIDE
--- NOTE | 2018-05-30 18:09 | NUR ---
PT GIVEN URINAL FOR URINE COLLECTION, PT IS NOT ABLE TO GIVE URINE AT THIS TIME
[2018-05-30] MEDS ORDERED: NACL 0.9% 1,000 ML IV ONE (18:15)
[2018-05-30 18:42] LABS: BASOPHILS # (AUTO) 0.2 K/uL (0.00-0.22); BASOPHILS % (AUTO) 3.4 % (0.0-2.0); EOSINOPHILS # (AUTO) 0.1 K/uL (0-0.4); HEMATOCRIT 32.5 % (36-52); HEMOGLOBIN 10.3 g/dL (12.0-18.0); LYMPHOCYTES # (AUTO) 2.2 K/uL (2.0-11.5); LYMPHOCYTES % (AUTO) 41.3 % (20.5-51.1); MEAN CORPUSCULAR HEMOGLOBIN 28 pg (27-31); MEAN CORPUSCULAR HGB CONC 32 g/dL (33-37); MEAN CORPUSCULAR VOLUME 88.6 fL (80-94); MONOCYTES # (AUTO) 0.4 K/uL (0.8-1.0); MONOCYTES % (AUTO) 7.4 % (1.7-9.3); NEUTROPHILS # (AUTO) 2.5 K/uL (1.8-7.7); NEUTROPHILS % (AUTO) 46.9 % (42.2-75.2); PLATELET COUNT (AUTO) 272 K/uL (140-450); RED BLOOD CELL COUNT(AUTO) 3.67 MIL/uL (4.20-6.10); RED CELL DISTRIBUTION WIDTH 17.4 % (11.6-13.7); WHITE BLOOD COUNT (AUTO) 5.4 K/uL (4.8-10.8)
[2018-05-30 18:50] LABS: ANION GAP 21.6 (8-16); CARBON DIOXIDE 22.1 mmol/L (21-32); CHLORIDE 107 mmol/L (98-107); CREATININE 1.1 mg/dL (0.7-1.3); GFR ARICAN-AMERICAN 89 mL/min (>90); GLUCOSE 83 mg/dL (74-106); POTASSIUM 3.7 mmol/L (3.5-5.1); SODIUM SERUM 147 mmol/L (136-145); UREA NITROGEN, BLOOD 10 mg/dL (7-18)
[2018-05-30 18:57] LABS: ALBUMIN 3.9 g/dL (3.4-5.0); ASPARTATE AMINOTRANSFERASE 43 U/L (15-37); TOTAL BILIRUBIN 0.3 mg/dL (0.0-1.0)
[2018-05-30 18:58] LABS: SALICYLATE < 2.8 mg/dL (2.8-20.0)
[2018-05-30 19:02] LABS: ACETAMINOPHEN < 0.5 ug/ml (10-30)
--- NOTE | 2018-05-30 19:02 | NUR ---
blood alc level 419
[2018-05-30 19:12] LABS: PROTHROMBIN TIME 10.7 secs (10.8-13.4)
[2018-05-30 19:17] LABS: BARBITURATE, URINE NEG. ng/ml (NEG <=200); BENZODIAZEPINE, URINE NEG. ng/mL (NEG <=200); CANNABINOID, URINE NEG. ng/mL (NEG <=50); COCAINE, URINE NEG. ng/mL (NEG <=300); OPIATE, URINE NEG. ng/mL (NEG <=2000); PHENCYCLIDINE SCREEN,URINE NEG. ng/mL (NEG <=25)
[2018-05-30] MEDS ORDERED: ACETAMINOPHEN 325 MG TAB PO PRN (19:25)
[2018-05-30] MEDS ORDERED: LORazepam 2 MG/ML VIAL IVP PRN (19:25)
[2018-05-30] MEDS ORDERED: FOLIC ACID 1 MG TAB PO SCH (20:00)
--- NOTE | 2018-05-30 20:12 | NUR ---
ADMITTED A 57 Y/O MALE FROM [facility]IA [facility] WITH CHIEF COMPLAINTS OF ALCOHOL INTOXICATION. PATIENT ABLE TO TRANSFERRED TO BED WITH STAND BY ASSIST. PATIENT AA0X3, ABLE TO RECOGNIZES HIS NEEDS, OBEYS COMMAND.RESPIRATION EVEN AND UNLABORED. EXPLAINED PLAN OF CARE AND VERBALIZED UNDERSTANDING. MRSA NASAL SWAB DONE. SKIN INTACT. ROUTINE ADMISSION CARE DONE AND CARRY OUT ORDERS.PERSONAL BELONGINGS AT PATIENT BEDSIDE.BED IN LOW LOCKED POSITION. CALL LIGHT WITHIN REACH. ALL NEEDS ATTENDED. WILL CONTINUE TO MONITOR.
[2018-05-30] MEDS: DEXT 5% / NACL 0.45% 1,000 ML IV SCH (20:45)
--- NOTE | 2018-05-30 22:00 | NUR ---
PATIENT ASSISTED TO BATHROOM. PATIENT ABLE TO FOLLOW/OBEYS COMMAND.ALL NEEDS ATTENDED. NO S/S OF DISTRESS NOTED AT THIS TIME. NO SIGN OF AGGRESSION NOTED. EXPLAINED TO USE THE CALL LIGHTS FOR ASSISTANCE. BED IN LOW LOCKED POSITION. CALL LIGHT WITHIN REACH.
--- NOTE | 2018-05-30 22:17 | NUR ---
Patient will be admitted to [facility]. Admited to MS. Will go to room 124B. Belongings list completed.Report to ANN-MARIE GARCIA.
[2018-05-30 22:24] LABS: APPEARANCE,URINE CLEAR (CLEAR); BILIRUBIN,URINE NEGATIVE (NEGATIVE); BLOOD, URINE TRACE-L (NEGATIVE); COLOR,URINE YELLOW (YELLOW); LEUKOCYTE ESTERASE ,URINE NEGATIVE (NEGATIVE); NITRITE, URINE NEGATIVE (NEGATIVE); UGLUCOSE NEGATIVE (NEGATIVE)
[2018-05-30 22:45] LABS: RBC,URINE 0-5 /HPF (0-5); WBC,URINE 0-5 /HPF (0-5)
--- NOTE | 2018-05-31 | NUR ---
SEEN PATIENT ASLEEP BUT EASILY AROUSABLE.. NO S/S OF DISTRESS NOTED.BED IN LOW LOCKED POSITION. CALL LIGHT WITHIN REACH. WILL CONTINUE TO MONITOR.
--- NOTE | 2018-05-31 02:00 | NUR ---
ANSWER PATIENT NEEDS ON TIME. BLANKET GIVEN FOR COMFORT. MAINTAIN QUIET ENVIRONMENT. NO S/S OF DISTRESS NOTED. BED IN LOW LOCKED POSITION. CALL LIGHT WITHIN REACH.
[2018-05-31] MEDS: DEXT 5% / NACL 0.45% 1,000 ML IV SCH ×4 (03:00→21:59)
[2018-05-31 04:00] VITALS: BP 125/69
--- NOTE | 2018-05-31 04:00 | NUR ---
SEEN PATIENT ASLEEP BUT EASILY AROUSABLE, V/S TAKEN AND RECORDED. . CALL LIGHT WITHIN REACH.ALL NEEDS ATTENDED. WILL CONTINUE TO MONITOR.
[2018-05-31 06:44] LABS: BASOPHILS # (AUTO) 0.1 K/uL (0.00-0.22); BASOPHILS % (AUTO) 1.4 % (0.0-2.0); HEMATOCRIT 26.1 % (36-52); HEMOGLOBIN 8.6 g/dL (12.0-18.0); LYMPHOCYTES # (AUTO) 1.3 K/uL (2.0-11.5); LYMPHOCYTES % (AUTO) 33.7 % (20.5-51.1); MEAN CORPUSCULAR HEMOGLOBIN 29 pg (27-31); MEAN CORPUSCULAR HGB CONC 33 g/dL (33-37); MEAN CORPUSCULAR VOLUME 87.6 fL (80-94); MONOCYTES # (AUTO) 0.9 K/uL (0.8-1.0); MONOCYTES % (AUTO) 23.3 % (1.7-9.3); NEUTROPHILS # (AUTO) 1.5 K/uL (1.8-7.7); NEUTROPHILS % (AUTO) 40.6 % (42.2-75.2); PLATELET COUNT (AUTO) 161 K/uL (140-450); RED BLOOD CELL COUNT(AUTO) 2.97 MIL/uL (4.20-6.10); RED CELL DISTRIBUTION WIDTH 16.6 % (11.6-13.7); WHITE BLOOD COUNT (AUTO) 3.8 K/uL (4.8-10.8)
--- NOTE | 2018-05-31 07:05 | NUR ---
RECEIVED PT REPORT FROM CLOUD ADMINISTRATOR NURSE AT BEDSIDE. PT IS AWAKE AND ALERT, NO S/S OF ACUTE DISTRESS OR SOB. PT IS ON ROOM AIR, SKIN INTACT. NO C/O HALLUCINATIONS OR SHAKING/AGITATION NOTED. IV SITE NOTED ON THE RAC, 20 G, INFUSING D5 1/2 NS 150 ML/HR. CALL LIGHT WITHIN REACH. WILL CONTINUE TO MONITOR.
[2018-05-31 07:20] LABS: ALBUMIN 3.3 g/dL (3.4-5.0); ANION GAP 13.8 (8-16); CARBON DIOXIDE 26.6 mmol/L (21-32); MAGNESIUM 1.7 mg/dL (1.8-2.4); POTASSIUM 3.4 mmol/L (3.5-5.1); TOTAL BILIRUBIN 0.4 mg/dL (0.0-1.0)
--- NOTE | 2018-05-31 07:32 | NUR ---
GAVE REPORT TO AM SHIFT RN AT BEDSIDE. CALL LIGHT WITHIN REACH. ALL NEEDS ATTENDED. PATIENT IN STABLE CONDITION.
[2018-05-31 08:00] VITALS: BP 113/71
--- NOTE | 2018-05-31 08:07 | NUR ---
PATIENT HAS BEEN SCREENED AND CATEGORIZED MODERATE NUTRITION RISK. PATIENT WILL BE SEEN WITHIN 3-5 DAYS OF ADMISSION. 06/02/18JHONY STONE [address]
[2018-05-31] MEDS: LOSARTAN 50 MG TAB PO SCH (09:00)
[2018-05-31] MEDS ORDERED: THIAMINE 200 MG/2 ML VIAL IV ONE (09:00)
[2018-05-31] MEDS ORDERED: THIAMINE 100 MG TAB PO SCH (09:30)
[2018-05-31] MEDS ORDERED: MAG SULF 2000 MG/WATER PREMIX 50 ML IV PRN (09:55)
[2018-05-31] MEDS ORDERED: KCL 20 MEQ/WATER INJ PREMIX 100 ML IV PRN (09:55)
[2018-05-31] MEDS: amLODIPine 5 MG TAB PO SCH (10:27)
--- NOTE | 2018-05-31 11:29 | NUR ---
RUPAL XIE SPOKE WITH CLYDE OF [facility] (PCP) PH# [phone] TO SET UP PATIENT'S OUTPATIENT FOLLOW UP APPOINTMENT. PER CLYDE, THE PATIENT IS SCHEDULED TO SEE DR. [facility] ON JUNE 07, 2018 AT 11:15 AM AT THE CLINIC AT [address] [place] [address]. I GAVE THE PATIENT A COPY OF HIS OUTPATIENT FOLLOW UP SCHEDULE.
--- NOTE | 2018-05-31 12:10 | NUR ---
PT'S IV CAME OUT. WILL ATTEMPT TO INSERT A NEW ONE.
[2018-05-31] MEDS ORDERED: ONDANSETRON 4 MG/2 ML VIAL IVP PRN (12:15)
--- NOTE | 2018-05-31 12:22 | NUR ---
PT C/O NAUSEA AND VOMITING, WILL OBTAIN ORDER FOR ZOFRAN. MEANWHILE GAVE ICE CHIPS TO PT, HE STATED THAT IT HELPED A LITTLE BIT. STILL FEELING NAUSEOUS THOUGH.
--- NOTE | 2018-05-31 14:58 | NUR ---
NEW IV INSERTED: L HAND 24 GAUGE. PATENT AND INTACT.
[2018-05-31] MEDS ORDERED: POTASSIUM CHLORIDE 20 MEQ, LIDOCAINE MPF 1% - 5 mL VIAL 25 MG in NACL 0.9% 250 ML IV PRN (17:45)
--- NOTE | 2018-05-31 17:45 | NUR ---
CURRENTLY INFUSING PRN IV MAGNESIUM FOR PT'S MAG LEVEL OF 1.7. ALSO CALLED PHARMACY TO MIX A POTASSIUM-LIDOCAINE IV INJECTION FOR PT'S POTASSIUM LEVEL OF 3.4
--- NOTE | 2018-05-31 19:30 | NUR ---
PT ENDORSED TO MANAGER SUBWAY IN STABLE CONDITION.
--- NOTE | 2018-05-31 19:35 | NUR ---
RECEIVED ENDORSEMENT FROM AM SHIFT RN; PATIENT A/Ox4, ABLE TO MAKE NEEDS KNOWN. INTRODUCED SELF, UPDATED BOARD. NO SOB OR DISTRESS NOTED. IV SITE ON LEFT FOREARM, 24 GAUGE, INTACT AND PATENT. SKIN INTACT. BED IN THE LOWEST POSITION, CALL LIGHT WITHIN REACH. INITIAL ASSESSMENT DONE. WILL CONTINUE TO MONITOR.
--- NOTE | 2018-05-31 22:00 | NUR ---
CHECKS MADE, PATIENT IS WATCHING TV. NO DISTRESS NOTED.
[2018-05-31] MEDS: chlordiazePOXIDE 25 MG CAP PO SCH (22:23)
[2018-06-01] VITALS: BP 144/81
--- NOTE | 2018-06-01 00:20 | NUR ---
VITALS TAKEN, NO DISTRESS NOTED.
--- NOTE | 2018-06-01 03:00 | NUR ---
FREQUENT ROUNDS MADE, PATIENT ASLEEP, EYES CLOSED, VISIBLE CHEST RISE AND FALL NOTED.
[2018-06-01] MEDS: DEXT 5% / NACL 0.45% 1,000 ML IV SCH (05:06)
--- NOTE | 2018-06-01 05:10 | NUR ---
ROUNDS DONE, NO SOB OR DISTRESS NOTED.
--- NOTE | 2018-06-01 07:15 | NUR ---
ENDORSED PATIENT TO AM SHIFT RN; PATIENT IN STABLE CONDITION.
--- NOTE | 2018-06-01 07:30 | NUR ---
RECEIVED PT REPORT FROM REQUIREMENTS ENGINEER NURSE AT BEDSIDE. PT IS AWAKE IN BED, NO S/S OF ACUTE DISTRESS OR SOB NOTED. PT ON ROOM AIR, SKIN IS INTACT. IV SITE NOTED ON THE L FA, 24 G, INFUSING D5 1/2 NS 150 ML/HR. PT IS ON CARDIAC DIET. PT IS AMBULATORY. CALL LIGHT IS WITHIN REACH. WILL CONTINUE TO MONITOR.
[2018-06-01 08:00] VITALS: BP 150/80
[2018-06-01] MEDS ORDERED: DULoxetine 30 MG CAPDR PO SCH (09:00)
[2018-06-01] MEDS ORDERED: THIAMINE 100 MG TAB PO SCH (09:00)
--- NOTE | 2018-06-01 09:15 | NUR ---
PT SEEN BY DR KO
[2018-06-01] MEDS ORDERED: DULO30EC PO (09:16)
[2018-06-01] MEDS ORDERED: LORA-476 PO (09:16)
[2018-06-01] MEDS ORDERED: ONDA4TAB PO (09:17)
[2018-06-01] MEDS: chlordiazePOXIDE 25 MG CAP PO SCH ×2 (09:41→15:22)
[2018-06-01] MEDS: amLODIPine 5 MG TAB PO SCH (09:41)
[2018-06-01] MEDS: LOSARTAN 50 MG TAB PO SCH (09:41)
--- NOTE | 2018-06-01 11:12 | NUR ---
PT HAS BEEN CALLING HIS GIRLFRIEND SEVERAL TIMES TO TRY TO NOTIFY HER OF HIS D/C TODAY, WITHOUT SUCCESS. WILL TRY CALLING AGAIN. Addendum: 06/01/18 at 1218 by Carolina Tim RN PT FINALLY ABLE TO REACH HIS GIRLFRIEND, WHO IS DRIVING HOME FROM OUT OF STATE. SHE SAID SHE IS ABOUT 3 HRS AWAY FROM THE HOSPITAL.
--- NOTE | 2018-06-01 16:40 | NUR ---
PT HAS DC'D. DC INSTRUCTIONS AND PRESCRIPTION GIVEN, PT VERBALIZED UNDERSTANDING AND SIGNED THE DC DOCUMENTS. IV SITE AND WRIST BANDS WERE REMOVED. PT LEFT WITH ALL HIS BELONGINGS IN STABLE CONDITION ACCOMPANIED BY HIS SO.
== END 2018-06-01 16:40 | disposition home or self-care (01) | DRG 775 ==
LOC: MED 17:46 → MTU 19:28
PROVIDERS: ADMIT Hospitalist; ATTEND Hospitalist
DX: F10.229 Alcohol dependence with intoxication, unspecified (principal); R45.851 Suicidal ideations; K74.60 Unspecified cirrhosis of liver; G40.909 Epilepsy, unspecified, not intractable, without status epilepticus; F32.9 Major depressive disorder, single episode, unspecified; H55.00 Unspecified nystagmus; I10 Essential (primary) hypertension; D64.9 Anemia, unspecified; K21.9 Gastro-esophageal reflux disease without esophagitis; Y90.9 Presence of alcohol in blood, level not specified; Z88.5 Allergy status to narcotic agent; Z88.0 Allergy status to penicillin; G89.29 Other chronic pain; Z91.5 Personal history of self-harm; Z79.899 Other long term (current) drug therapy
CPT/HCPCS: 36415; 71045; 80053; 80305; 81001; 82140; 83735; 84484; 85025; 85610; 85730; 87081; 93005; 99285; G0480; G0482; J2001; J2060; J2405; J3475; J3480; J7030; Q0092